=== PATIENT | male | born 1955 | race Caucasian/White ===

== ENCOUNTER 2018-02-25 00:57 | Outpatient (CLI) | payer OTHER, SELFPAY ==
--- NOTE | 2018-02-25 13:00 | ETT_ITS ---
*[facility]* *[facility]* [address] [place] [address] Stress Electrocardiography Jv protocol Date of study: 02/25/2018 *PATIENT PRESENTATION* Height: 175.3cm (69in) Blood Pressure: Weight: 74.5kg (164lb) BSA: 1.91m^2 Ordering physician: Kim Haddad Impressions: - Objectively normal with no ST changes. - However, with reproduction of chest pain at peak exercise with resolution at rest. Summary: 1. Stress: The target heart rate was achieved. Recommendations: Consider perfusion imaging for further prognostication. Indication: R07.89. History: REASON FOR VISIT: EXERTIONAL CHEST PAIN NOTED WHILE WALKING UP HILL IN THE LAST 6 MONTHS. NO RESTING CHEST PAIN. MAIN RISK FACTOR IS HIS ELEVATED HDL. Risk factors: Family history of coronary artery disease. Dyslipidemia. Cholesterol: 269mg/dl. HDL: 59mg/dl. LDL: 184mg/dl. Triglycerides: 101mg/dl. ALLERGIES: NO KNOWN DRUG ALLERGIES. MEDICATIONS: IBUPROFEN PRN. Protocol: Jv protocol. Baseline ECG: SINUS RHYTHM. HR 63 BPM. Stress protocol: + +---+ + !Stage !HR !BP (mmHg) ! + +---+ + !Baseline supine !63 !140/80 (100)! + +---+ + !Baseline standing !75 !124/82 (96) ! + +---+ + !Stage I; 1.7mph, 10degrees; 3 min !103!152/84 (107)! + +---+ + !Stage II; 2.5mph, 12degrees; 3 min !110!166/80 (109)! + +---+ + !Stage III; 3.4mph, 14degrees; 3 min!129!168/84 (112)! + +---+ + !Stage IV; 4.2mph, 16degrees; 3 min !148!172/80 (111)! + +---+ + !Immediate post stress !150!188/74 (112)! + +---+ + !Recovery; 3 min !86 !180/86 (117)! + +---+ + !Recovery; 6 min !83 !142/76 (98) ! + +---+ + * Stress results: Maximal heart rate during stress was 152bpm (96% of maximal predicted heart rate). The maximal predicted heart rate was 158bpm. The target heart rate was achieved. The rate-pressure product for the peak heart rate and blood pressure was 37072dn Hg/min. Stress ECG: TREADMILL PORTION OF STRESS TEST ENDED IN 12 MINUTES AND 1 SECOND BECAUSE OF FATIGUE. NORMAL HEART RATE AND BLOOD PRESSURE RESPONSE TO EXERCISE MAX HR = 152 % OF TARGET HR = 96 RARE PVC. APPROXIMATE METS ACHIEVED = 13.48 3 OUT OF 10 CENTER OF CHEST DISCOMFORT DESCRIBED INDIGESTION SENSATION AT PEAK EXERCISE. SUBSIDED IMMEDIATELY WHEN TREAMILL STOPPED. NO SIGNIFICANT ST SEGMENT CHANGES. U WAVES NOTED MOST PROMINENTLY SEEN DURING 2-4 MINUTE RECOVERY PERIOD. ABOVE AVERAGE FUNCTIONAL CAPACITY FOR EXERCISE. Study data: Ivanna Fishman MD supervised and was readily available during the procedure. This study was interpreted by [facility]. Study status: Routine. Consent: The risks, benefits, and alternatives to the procedure were explained to the patient and informed consent was obtained. Procedure: Initial setup. A baseline ECG was recorded. Surface ECG leads and manual cuff blood pressure measurements were monitored. Heart sounds: Normal. Lung sounds: Normal. Treadmill exercise testing was performed using the Jv protocol. Study completion: The patient tolerated the procedure well and was discharged from the lab. Discharge: The patient left the laboratory in stable condition. Birthdate: Patient birthdate: 1955. Sex: Gender: male. Study date: Study date: 02/25/2018. Study time: 01:00 PM. Signature Documentation: The Stress ECG portion of this study was interpreted by Ivanna Fishman MD. Electronically signed by Ivanna Fishman 02/25/2018 14:42
== END 2018-02-25 01:17 ==
PROVIDERS: PCP Nurse Practitioner Family; Visit Provider Nurse Practitioner Family
DX: R07.89 Other chest pain (principal)
CPT/HCPCS: 93017

== ENCOUNTER 2018-03-08 00:07 | Outpatient (CLI) | payer OTHER, SELFPAY ==
--- NOTE | 2018-03-08 06:39 | MERGEMPI_ITS ---
*[facility]* *[facility]* [address] [place] [address] Myocardial Perfusion Imaging - SPECT Jv protocol Date of study: 03/08/2018 *PATIENT PRESENTATION* Height: 175.3cm (69in) Blood Pressure: Weight: 74.5kg (164lb) BSA: 1.91m^2 Referring physician: Mauricio Sahu MD Ordering physician: Kim Haddad Impressions: - Normal perfusion by Tc99m Sestamibi Imaging. - Abnormal contraction consistent with cardiomyopathy. - Consider ECHO to better evaluate LVEF. Summary: 1. Myocardial perfusion imaging: No myocardial perfusion defects noted. 2. The calculated left ventricular ejection fraction after stress: 40%. Diffuse left ventricular regional motion abnormalities. 3. Stress: The target heart rate was achieved. Indication: R07.9. History: Patient's presenting symptoms: asymptomatic. REASON FOR VISIT: PATIENT REPORTS A DEEP ACHE CHEST PAIN WHILE WALKING UP A STEEP HILL OVER THE LAST SIX MONTHS. NO CHEST PAIN AT REST. PATIENT HAD RETURN OF CHEST PAIN AT PEAK EXERCISE DURING REGULAR TREADMILL STRESS TEST ON 02/25/18. PATIENT PRESENTS TODAY FOR MPI STRESS TEST TO FURTHER INVESTIGATE. PAST MEDICAL HISTORY: HYPERLIPIDEMIA. FAMILY HISTORY: MOTHER - HYPERTENSION, HYPERLIPIDEMIA. FATHER - COPD WITH EMPHYSEMA. SMOKING STATUS: NEVER SMOKER. EXERCISE ROUTINE: WALKING 5-6 DAYS/WEEK, STRETCHING AND PUSH-UPS. Risk factors: Family history of coronary artery disease. Dyslipidemia. Cholesterol: 269mg/dl. HDL: 59mg/dl. LDL: 184mg/dl. Triglycerides: 101mg/dl. ALLERGIES: NO KNOWN DRUG ALLERGIES. MEDICATIONS: IBUPROFEN PRN. Imaging Technique: Protocol: Jv protocol. Acquisition: Gated SPECT; 1 day - rest/stress. The patient was imaged in the supine position. Attenuation correction used. Isotope administration: - Rest. Tc[99m]-sestamibi. Dose: 10.5mCi. Date: 03/08/2018. Injection time: 08:15 AM. Injection to stress time: 00:45. - Stress. Tc[99m]-sestamibi. Dose: 32mCi. Date: 03/08/2018. Injection time: 11:00 AM. 1-2 min before end of exercise Baseline ECG: SINUS BRADYCARDIA. HEART RATE 57 BPM. Stress protocol: + +---+ + + !Stage !HR !BP (mmHg) !Rhythm ! + +---+ + + !Baseline supine !57 !122/76 (91) !Sinus debbie! + +---+ + + !Baseline standing !69 !142/82 (102)! ! + +---+ + + !Stage I; 1.7mph, 10degrees; 3 min !88 !148/80 (103)! ! + +---+ + + !Stage II; 2.5mph, 12degrees; 3 min !102!156/82 (107)! ! + +---+ + + !Stage III; 3.4mph, 14degrees; 3 min!121!162/86 (111)! ! + +---+ + + !Stage IV; 4.2mph, 16degrees; 3 min !145!170/88 (115)! ! + +---+ + + !Peak stress !148! ! ! + +---+ + + !Recovery; 1 min !115!184/80 (115)! ! + +---+ + + !Recovery; 3 min !83 !176/84 (115)! ! + +---+ + + !Recovery; 6 min !83 !126/80 (95) ! ! + +---+ + + * Stress results: Maximal heart rate during stress was 148bpm (94% of maximal predicted heart rate). The maximal predicted heart rate was 158bpm. The target heart rate was achieved. The rate-pressure product for the peak heart rate and blood pressure was 09756hv Hg/min. Stress ECG: TREADMILL PORTION OF MPI STRESS TEST ENDED IN 11 MIN 59 SEC DUE TO DYSPNEA AND ONSET OF CHEST PAIN. APPROPRIATE HEART RATE AND BLOOD PRESSURE RESPONSE TO EXERCISE. MAX HR 148 BPM, 93% OF TARGET HR. APPROXIMATE METS ACHIEVED 13.48. NO ECTOPY NOTED. AFTER 11 MINUTES OF EXERCISE, PATIENT REPORTED 3/10 DULL CHEST PAIN LOCATED AT STERNUM AND RADIATING TO JAW, WITH ASSOCIATED DYSPNEA. CHEST PAIN RESOLVED WITH REST BY MINUTE [address] SEGMENT DEPRESSION NOTED IN LEADS V3, V4, V5, AND V6 STARTING AT MINUTE 9 OF EXERCISE AND RETURNING TO BASELINE BY MINUTE 2 OF RECOVERY. UPRIGHT U WAVES PRESENT ON EKG AT MINUTE 2 OF RECOVERY AND RETURNING TO BASELINE BY MINUTE 6. ABOVE AVERAGE FUNCTIONAL CAPACITY. Myocardial perfusion: Imaging information: gated. No myocardial perfusion defects noted. Ventricular Function (Wall Motion): The calculated left ventricular ejection fraction after stress: 40%. Diffuse left ventricular regional motion abnormalities. Study data: Mauricio Sahu MD supervised and was readily available during the procedure. This study was interpreted by [facility]. Study status: Routine. Consent: The risks, benefits, and alternatives to the procedure were explained to the patient and informed consent was obtained. Procedure: Initial setup. A baseline ECG was recorded. Surface ECG leads and manual cuff blood pressure measurements were monitored. Heart sounds: Normal. Lung sounds: Normal. Treadmill exercise testing was performed using the Jv protocol. Study completion: All catheters inserted during the procedure were removed. The patient tolerated the procedure well and was discharged from the lab. Discharge: The patient left the laboratory in stable condition. Birthdate: Patient birthdate: 1955. Sex: Gender: male. Study date: Study date: 03/08/2018. Study time: 06:39 AM. Electronically signed by Mauricio Sahu MD 03/08/2018 12:57
[2018-03-08 13:49] LABS: Anion Gap 11.6 mmol/L (3-11); BUN 25 mg/dL (7-18); CO2 26.4 mmol/L (21.0-32.0); CREATININE 1.24 mg/dL (0.70-1.30); Calcium 9.2 mg/dL (8.5-10.1); Chloride 103 mmol/L (98-107); Estimated GFR 59.07 (mL/min/1.73m2); Glucose 88 mg/dL (70-100); Potassium 4.3 mmol/L (3.5-5.1); Sodium 141 mmol/L (136-145)
[2018-03-08 14:22] LABS: Cholesterol 243 mg/dL (50-200); HDL Cholesterol 49 mg/dL (40-60); LDL CHOLESTEROL 157 mg/dL (<100); Triglyceride 141 mg/dL (30-150)
== END 2018-03-08 00:27 ==
PROVIDERS: PCP Nurse Practitioner Family; Visit Provider Nurse Practitioner Family
DX: R07.9 Chest pain, unspecified (principal); I42.9 Cardiomyopathy, unspecified; E78.5 Hyperlipidemia, unspecified
CPT/HCPCS: 36415; 78452; 80048; 80061; 83721; 93017

== ENCOUNTER 2018-03-24 00:14 | Outpatient (CLI) | payer OTHER, SELFPAY ==
--- NOTE | 2018-03-24 14:15 | MERGE_ITS ---
*[facility]* *[facility]* [address] [place] [address] Date of study: 03/24/2018 Transthoracic Echocardiography M-mode, complete 2D, complete spectral Doppler, and color Doppler *STUDY CONCLUSIONS* Summary: 1. Left ventricle: The cavity size was normal. Wall thickness was normal. Systolic function was normal. The estimated ejection fraction was 55-60%. Wall motion was normal; there were no regional wall motion abnormalities. 2. Mitral valve: Mild thickening, consistent with myxomatous proliferation. No echocardiographic evidence for prolapse. There was mild to moderate regurgitation. 3. Left atrium: The atrium was mildly dilated. 4. Right ventricle: The cavity size was normal. Wall thickness was normal. Systolic function was normal. *PATIENT PRESENTATION* Height: 177.8cm ((70in) ) S/D Pressure: 144 / 69 Weight: 72.6kg ((159.7lb) ) BSA: 1.89m^2 Test start time: 02:15 PM. Test stop time: 03:15 PM. PERFORMING [facility] VOLUNTEER FIRE FIGHTER RT Hiwot Chaparro)(CT), KLEBER ORDERING Kim Haddad REFERRING Kim Haddad *PROCEDURE DATA* Procedure information: The patient was identified by two identifiers. This study was interpreted by [facility]. Pertinent images and digital data are archived for permanent storage and are available for subsequent review. No prior study was available for comparison. Study status: Routine. Transthoracic echocardiography. M-mode, complete 2D, complete spectral Doppler, and color Doppler. A Transthoracic Echocardiogram was performed. Scanning was performed from the parasternal, apical, subcostal, and suprasternal notch acoustic windows. Images were obtained using an [id number] cardiac ultrasound machine. Image quality was adequate. Study completion: The patient tolerated the procedure well. There were no complications. History: PMH: exertional chest pain. cardiomyopathy seen on MPI *CARDIAC ANATOMY* Left ventricle: The cavity size was normal. Wall thickness was normal. Systolic function was normal. The estimated ejection fraction was 55-60%. Wall motion was normal; there were no regional wall motion abnormalities. Diastolic parameters were not diagnostic. Aortic valve: Trileaflet; normal thickness leaflets. Mobility was not restricted. Doppler: Transvalvular velocity was within the normal range. There was no stenosis. There was no significant regurgitation. VTI ratio of LVOT to aortic valve: 0.69. Valve area (VTI): 2.1cm^2. Indexed valve area (VTI): 1.1cm^2/m^2. Peak velocity ratio of LVOT to aortic valve: 0.77. Valve area (Vmax): 2.3cm^2. Indexed valve area (Vmax): 1.2cm^2/m^2. Mean velocity ratio of LVOT to aortic valve: 0.72. Valve area (Vmean): 2.2cm^2. Indexed valve area (Vmean): 1.1cm^2/m^2. Mean gradient (S): 3.1mm Hg. Peak gradient (S): 4.4mm Hg. Aorta: Aortic root: The aortic root was normal in size. Ascending aorta: The ascending aorta was normal in size. Mitral valve: Mild thickening, consistent with myxomatous proliferation. Mobility was not restricted. No echocardiographic evidence for prolapse. Doppler: Transvalvular velocity was within the normal range. There was no evidence for stenosis. There was mild to moderate regurgitation. Valve area by pressure half-time: 4.5cm^2. Indexed valve area by pressure half-time: 2.4cm^2/m^2. Left atrium: The atrium was mildly dilated. Right ventricle: The cavity size was normal. Wall thickness was normal. Systolic function was normal. Pulmonic valve: Doppler: Transvalvular velocity was within the normal range. There was no evidence for stenosis. There was no significant regurgitation. Peak gradient (S): 4.8mm Hg. Tricuspid valve: Structurally normal valve. Doppler: Transvalvular velocity was within the normal range. There was no evidence for stenosis. There was mild regurgitation. Pulmonary artery: Pulmonary systolic pressure was within the normal range, in the range of 25mm Hg to 30mm Hg. Right atrium: The atrium was normal in size. Pericardium: There was no pericardial effusion. Systemic veins: Inferior vena cava: Well visualized. The vessel was patent and normal in size. The respirophasic diameter changes were in the normal range (greater than or equal to 50%). Baseline ECG: Normal sinus rhythm. Measurements Left ventricle Value Reference LV ID, ED, PLAX 4.9 cm 3.5 - 6.0 LV ID, ES, PLAX 3.6 cm 2.1 - 4.0 LV PW thickness, ED, PLAX 1.1 cm LV end-diastolic volume, 1-p A2C 109 ml LV ejection fraction, 1-p A2C 61 % LV end-diastolic volume, 1-p A4C 123 ml LV ejection fraction, 1-p A4C 52 % LV e', lateral 0.075 m/sec LV E/e', lateral 8 LV e', medial 0.082 m/sec LV E/e', medial 7 LV e', average 0.078 m/sec LV E/e', average 7 Ventricular septum Value Reference IVS thickness, ED, PLAX 1.0 cm LVOT Value Reference LVOT ID, A-P 2.0 cm LVOT area 3 cm^2 LVOT peak velocity, S 0.8 m/sec LVOT mean velocity, S 0.62 m/sec LVOT VTI, S 17.9 cm LVOT peak gradient, S 2.6 mm Hg LVOT mean gradient, S 1.6 mm Hg Stroke volume (SV), LVOT DP 54 ml Stroke index (SV/bsa), LVOT DP 28 ml/m^2 Aortic valve Value Reference Aortic valve peak velocity, S 1 m/sec Aortic valve mean velocity, S 0.86 m/sec Aortic valve VTI, S 26.0 cm Aortic mean gradient, S 3.1 mm Hg Aortic peak gradient, S 4.4 mm Hg VTI ratio, LVOT/AV 0.69 Aortic valve area, VTI 2.1 cm^2 Velocity ratio, peak, LVOT/AV 0.77 Aortic valve area, peak velocity 2.3 cm^2 Velocity ratio, mean, LVOT/AV 0.72 Aortic valve area, mean velocity 2.2 cm^2 Aortic valve area/bsa, mean velocity 1.1 cm^2/m^2 Aorta Value Reference Aortic root ID, ED 3.3 cm Ascending aorta ID, A-P, S 3.5 cm Left atrium Value Reference LA ID, A-P, ES 3.0 cm LA ID/bsa, A-P 1.6 cm/m^2 <=2.2 LA area, ES, A4C 21.3 cm^2 8.8 - 23.4 LA area, ES, A2C 16 cm^2 LA volume/bsa, ES, 1-p A4C 39 ml/m^2 LA volume, ES, 2-p 59 ml LA volume/bsa, ES, 2-p 31 ml/m^2 LA/aortic root ratio 0.91 Mitral valve Value Reference Mitral E-wave peak velocity 0.59 m/sec Mitral A-wave peak velocity 0.49 m/sec Mitral deceleration time 170 ms 150 - 230 Mitral pressure half-time 49 ms Mitral E/A ratio, peak 1.2 Mitral valve area, PHT, DP 4.5 cm^2 Pulmonary veins Value Reference Pulmonary vein peak velocity, S 0.47 m/sec Pulmonary vein peak velocity, D 0.48 m/sec Pulmonary vein velocity ratio, peak, 0.98 S/D Tricuspid valve Value Reference Tricuspid regurg peak velocity 2.4 m/sec Tricuspid peak RV-RA gradient 23.3 mm Hg Right atrium Value Reference RA area, ES, A4C 16.4 cm^2 8.3 - 19.5 Pulmonic valve Value Reference Pulmonic peak gradient, S 4.8 mm Hg Legend: (L) and (H) ori values outside specified reference range. I have personally reviewed the images and have reviewed and edited the reported findings. Electronically signed by Kieran Goldberg 03/25/2018 07:45
== END 2018-03-24 00:34 ==
PROVIDERS: PCP Nurse Practitioner Family; Visit Provider Nurse Practitioner Family
DX: R07.9 Chest pain, unspecified (principal); I42.9 Cardiomyopathy, unspecified; I34.0 Nonrheumatic mitral (valve) insufficiency
CPT/HCPCS: 93306

== ENCOUNTER 2019-02-11 01:46 | Outpatient (CLI) | payer OTHER, SELFPAY ==
[2019-02-11 08:53] LABS: Hemoglobin A1C 5.9 % (4.5-6.2)
[2019-02-11 10:11] LABS: ALT 32 U/L (16-63); AST 21 U/L (15-37); Albumin 4.1 g/dL (3.4-5.0); Alkaline Phosphatase 48 U/L (46-116); Anion Gap 4.4 mmol/L (3-11); BUN 25 mg/dL (7-18); Bilirubin, Total 0.3 mg/dL (0.2-1.0); CO2 30.6 mmol/L (21.0-32.0); Calcium 8.9 mg/dL (8.5-10.1); Calculated LDL 170 mg/dL; Chloride 105 mmol/L (98-107); Cholesterol 236 mg/dL (50-200); Glucose 99 mg/dL (70-100); HDL Cholesterol 55 mg/dL (40-60); Potassium 4.8 mmol/L (3.5-5.1); Sodium 140 mmol/L (136-145); Total Protein 7.2 g/dL (6.4-8.2); Triglyceride 58 mg/dL (30-150)
== END 2019-02-11 02:06 ==
PROVIDERS: PCP Nurse Practitioner Family; Visit Provider Nurse Practitioner Family
DX: E78.5 Hyperlipidemia, unspecified (principal)
CPT/HCPCS: 36415; 80053; 80061; 83036

== ENCOUNTER 2019-03-04 19:29 | Emergency (ER) | payer OTHER, SELFPAY ==
[2019-03-04 19:37] VITALS: BP 131/66; PULSE 68; RESP 18; TEMP 37.1; O2SAT 100
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
[2019-03-04 20:20] LABS: Abs Immature Grans 0.01 k/cumm (0.0-0.09); Absolute Basophil Count 0.03 k/cumm (0.0-0.2); Absolute Eosinophil Count 0.14 k/cumm (0.0-0.7); Absolute Lymphocyte Count 1.68 k/cumm (1.2-3.4); Absolute Monocyte Count 0.38 k/cumm (0.11-0.7); Absolute Neutrophil Count 3.12 k/cumm (1.2-6.7); Basophils % 0.6; Eosinophils % 2.6; HGB 13.9 g/dL (13.5-17.5); Immature Grans % 0.2; Lymphocytes % 31.3; Mean Corp. HGB Concentration 33.1 g/dL (32.0-36.0); Mean Corpuscular Hemoglobin 29.3 pg (27.0-33.0); Mean Corpuscular Volume 88.4 fL (80-95); Mean Platelet Volume 10.1 fL (8.0-11.0); Monocytes % 7.1; Neutrophils % 58.2; Platelet Count 293 x1000/uL (130-400); RBC 4.75 m/cumm (4.50-6.00); RBC Distribution Width 13.3 % (11.8-14.1); White Blood Cell Count 5.36 k/cumm (4.4-10.8)
[2019-03-04 20:23] LABS: Bilirubin Negative (Negative); Blood Negative (Negative); Clarity Sl Cloudy (Clear); Glucose Negative (Negative); Ketones Negative (Negative); Leukocyte Esterase Small (Negative); Nitrite Negative (Negative); Specific Gravity 1.025 (1.005-1.025); Urobilinogen 0.2 EU/dL (Up TO 0.2)
[2019-03-04 20:39] LABS: Epithelial Cells Few HPF (Negative); Other Cells Rare Renal (Negative); RBC 0-2 HPF (0-2)
[2019-03-04 20:40] LABS: Bacteria Packed HPF (Negative); C & S Indicated? Yes; Crystals Negative HPF (Negative); Mucus Negative (Negative)
[2019-03-04 20:44] LABS: Lipase 93 U/L (73-393)
[2019-03-04 20:47] LABS: ALT 41 U/L (16-63); AST 22 U/L (15-37); Albumin 3.9 g/dL (3.4-5.0); Alkaline Phosphatase 48 U/L (46-116); Anion Gap 5.3 mmol/L (3-11); BUN 27 mg/dL (7-18); Bilirubin, Total 0.3 mg/dL (0.2-1.0); CO2 31.7 mmol/L (21.0-32.0); CREATININE 1.16 mg/dL (0.70-1.30); Calcium 8.8 mg/dL (8.5-10.1); Chloride 106 mmol/L (98-107); Glucose 158 mg/dL (74-106); Magnesium 2.4 mg/dL (1.8-2.4); Potassium 4.1 mmol/L (3.5-5.1); Sodium 143 mmol/L (136-145); Total Protein 7.6 g/dL (6.4-8.2)
[2019-03-04] MEDS: Omnipaque 350 MG/ML 100 ML BTL IJ (21:31)
--- NOTE | 2019-03-04 21:31 | DI.CT_ITS ---
EXAM: CT ABDOMEN PELVIS CTA CLINICAL HISTORY: abdominal pain, ttp mid abd TECHNIQUE: Post IV contrast during the arterial phase. Axial CT angiography was performed with multi-slice acquisition and multi-planar and/or 3D reconstruc tions. COMPARISON: No exams were available for comparison FINDINGS: There is no evidence of aortic aneurysm or dissection. The celiac artery is dilated distally at 1.1 c m. The SMA and renal arteries as well as iliac arteries are unremarkable. The lung bases are clear. L iver, gallbladder, spleen and adrenals are unremarkable. The pancreas is mildly atrophic. There are l arge bilateral parapelvic renal cysts. Food is noted in the stomach. Pancreas appears atrophic mildly atrophic. There is a moderate quantity of stool in the colon. The appendix appears normal. There is diverticulosis without evidence of diverticulitis. There is a diverticulum of the right side of the b ladder. The prostate is unremarkable. There is a small amount of fat at the umbilicus. Degenerative d isc changes are seen at L5-S1. IMPRESSION: Dilatation of the mid to distal celiac artery. No acute abnormality.
--- NOTE | 2019-03-04 22:03 | DI.VRAD_ITS ---
PROCEDURE INFORMATION: Exam: CT Angiography Abdomen and Pelvis With Contrast Exam date and time: 03/04/2019 9:26 PM Age: 63 years old Clinical history: Abdominal pain; Localized; Other: Ttp mid abd TECHNIQUE: Imaging protocol: Computed tomographic angiography of the abdomen and pelvis with intravenous contrast material. 3D rendering: MIP reconstructed images were created and reviewed. Radiation optimization: All CT scans at this facility use at least one of these dose optimization techniques: automated exposure control; mA and/or kV adjustment per patient size (includes targeted exams where dose is matched to clinical indication); or iterative reconstruction. Contrast material: [id number]; Contrast volume: 100 ml; Contrast route: IV RT AC 18G; COMPARISON: No relevant prior studies available. FINDINGS: Aorta: No aortic aneurysm. Minimal atherosclerosis in the infrarenal abdominal aorta. Celiac trunk and mesenteric arteries: Mild aneurysmal dilation of the celiac artery up to 1.1 cm. Renal arteries: No occlusion or significant stenosis. Right iliac arteries: No occlusion or significant stenosis. Left iliac arteries: No occlusion or significant stenosis. Liver: No mass. Gallbladder and bile ducts: Unremarkable. No calcified stones. No ductal dilation. Pancreas: Unremarkable. No mass. No ductal dilation. Spleen: Unremarkable. No splenomegaly. Adrenals: Unremarkable. No mass. Kidneys and ureters: Bilateral parapelvic renal cysts measuring up to 5.6 cm. Stomach and bowel: Distal colonic diverticulosis without diverticulitis. Mild small bowel ileus. Appendix: No evidence of appendicitis. Intraperitoneal space: Unremarkable. No free air. No significant fluid collection. Lymph nodes: Unremarkable. No enlarged lymph nodes. Bladder: Right bladder diverticulum. Reproductive: Unremarkable as visualized. Bones/joints: Degenerative disc disease at L5-S1. Soft tissues: Umbilical hernia containing fat, uncomplicated. IMPRESSION: No aortic aneurysm or dissection. Minimal atherosclerosis in the infrarenal abdominal aorta. Mild aneurysmal dilation of the celiac artery up to 1.1 cm. Mild small bowel ileus Dictated and Authenticated by: Subhash James MD. Ordering:ROCIO Eagle MD
[2019-03-05 01:57] VITALS: BP 131/66; PULSE 68; RESP 18; O2SAT 100
--- NOTE | 2019-03-08 08:13 | W.ED.FU ---
Follow Up Plan: called and left message to check on patient after note of enterococcus in followup urine culture.
--- NOTE | 2019-03-08 08:26 | NUR.NOTE ---
Nursing Note:Faxed urine culture report to PCP for follow up per Dr. Michelle. Shivani Reid.
== END 2019-03-04 23:05 | disposition home or self-care (01) ==
PROVIDERS: Student in an Organized Health Care Education/Training Program; Emergency Provider Student in an Organized Health Care Education/Training Program; PCP Nurse Practitioner Family
DX: R10.33 Periumbilical pain (principal); K56.7 Ileus, unspecified; I72.8 Aneurysm of other specified arteries; Z87.442 Personal history of urinary calculi
CPT/HCPCS: 36415; 80053; 83690; 86850; 86900; 86901; 87077; 99285; 74174; 81003; 81015; 83735; 85025; 87086; 87186; 99284; J3490

== ENCOUNTER 2019-03-18 04:50 | Outpatient (CLI) | payer OTHER, SELFPAY ==
[2019-03-18 08:58] LABS: Bilirubin Negative (Negative); Blood Negative (Negative); Clarity Clear (Clear); Glucose Negative (Negative); Ketones Negative (Negative); Leukocyte Esterase Small (Negative); Nitrite Negative (Negative); Specific Gravity 1.015 (1.005-1.025); Urobilinogen 0.2 EU/dL (Up TO 0.2); pH 5.5 (5-8)
[2019-03-18 09:29] LABS: Bacteria Many HPF (Negative); C & S Indicated? Yes; Epithelial Cells Few HPF (Negative)
== END 2019-03-18 05:10 ==
LOC: LBO 04:52 → LBN 08:08
PROVIDERS: PCP Nurse Practitioner Family; Visit Provider Nurse Practitioner Family
DX: R82.79 Other abnormal findings on microbiological examination of urine (principal)
CPT/HCPCS: 87077; 81003; 81015; 87086; 87186

== ENCOUNTER 2019-05-20 00:54 | Outpatient (CLI) | payer OTHER, SELFPAY ==
[2019-05-20 07:22] LABS: Absolute Basophil Count 0.02 k/cumm (0.0-0.2); Absolute Eosinophil Count 0.11 k/cumm (0.0-0.7); Absolute Lymphocyte Count 1.21 k/cumm (1.2-3.4); Absolute Monocyte Count 0.33 k/cumm (0.11-0.7); Absolute Neutrophil Count 1.94 k/cumm (1.2-6.7); Basophils % 0.6; HCT 45.8 % (40.0-50.0); HGB 15.1 g/dL (13.5-17.5); Lymphocytes % 33.5; Mean Corpuscular Hemoglobin 29.2 pg (27.0-33.0); Mean Corpuscular Volume 88.6 fL (80-95); Mean Platelet Volume 10.2 fL (8.0-11.0); Monocytes % 9.1; Neutrophils % 53.8; Platelet Count 306 x1000/uL (130-400); RBC 5.17 m/cumm (4.50-6.00); RBC Distribution Width 13.3 % (11.8-14.1); White Blood Cell Count 3.61 k/cumm (4.4-10.8)
[2019-05-20 08:30] LABS: Hemoglobin A1C 5.7 % (3.8-5.6)
[2019-05-20 08:36] LABS: Calculated LDL 154 mg/dL (<100); Cholesterol 229 mg/dL (<200); HDL Cholesterol 62 mg/dL (40-60); Triglyceride 67 mg/dL (<150)
[2019-05-20 08:46] LABS: ALT 37 U/L (16-63); AST 23 U/L (15-37); Albumin 4.6 g/dL (3.4-5.0); Alkaline Phosphatase 59 U/L (46-116); Anion Gap 9.6 mmol/L (3-11); BUN 30 mg/dL (7-18); Bilirubin, Total 0.5 mg/dL (0.2-1.0); CO2 29.4 mmol/L (21.0-32.0); CREATININE 1.12 mg/dL (0.70-1.30); Calcium 9.4 mg/dL (8.5-10.1); Chloride 103 mmol/L (98-107); Glucose 89 mg/dL (74-106); Potassium 4.8 mmol/L (3.5-5.1); Sodium 142 mmol/L (136-145); Total Protein 7.9 g/dL (6.4-8.2)
== END 2019-05-20 01:14 ==
PROVIDERS: PCP Nurse Practitioner Family; Visit Provider Nurse Practitioner Family
DX: R73.03 Prediabetes (principal); I77.4 Celiac artery compression syndrome
CPT/HCPCS: 36415; 80053; 80061; 83036; 85025

== ENCOUNTER 2020-02-17 01:32 | Outpatient (CLI) | payer OTHER, SELFPAY ==
[2020-02-17 13:10] LABS: Hemoglobin A1C 5.5 % (<5.7)
[2020-02-17 13:30] LABS: Calculated LDL 154 mg/dL (<100); Cholesterol 230 mg/dL (<200); HDL Cholesterol 59 mg/dL (40-60); Triglyceride 87 mg/dL (<150)
== END 2020-02-17 01:52 ==
PROVIDERS: PCP Nurse Practitioner Family; Visit Provider Nurse Practitioner Family
DX: R73.03 Prediabetes (principal); E78.5 Hyperlipidemia, unspecified
CPT/HCPCS: 36415; 80061; 83036

== ENCOUNTER 2020-03-21 00:30 | Outpatient (CLI) | payer OTHER, SELFPAY ==
--- NOTE | 2020-03-21 07:31 | DI.US_ITS ---
APPROVED REPORT EXAM: Comprehensive 2D, Doppler, and color-flow Echocardiogram Patient Location: Out-Patient [employer] Installer: Bernadine Forman RDCS (AE) Indications: Mitral valve regurgitation Other Information Study Quality: Good Conclusion Left Ventricle : The left ventricle is normal size. The left ventricular systolic function is normal. The left ventricular ejection fraction is within the normal range. There is normal left ventricular wall thickness. There is normal LV segmental wall motion. The left ventricular diastolic function is normal. LVEF is 60%. Right Ventricle : The right ventricle is normal size. The right ventricular systolic function is norm al. The RVSP is 19.9 mmHg. Atria : The left atrium size is normal. The right atrium size is normal. Mitral Valve : The mitral valve is normal in structure. No evidence of mitral valve stenosis. Mild mi tral regurgitation. There is bowing of the anterior mitral valve without prolapse. Great Vessels : The aortic root is normal in size. The ascending aorta is mildly dilated. Aortic arch is normal in caliber. IVC is normal in size and collapses >50% with inspiration. Compared to study from 03/24/2018, there is no significant change. Wall motion Left Ventricle The left ventricle is normal size. The left ventricular systolic function is normal. The left ventric ular ejection fraction is within the normal range. There is normal left ventricular wall thickness. T here is normal LV segmental wall motion. The left ventricular diastolic function is normal. There is no ventricular septal defect visualized. LVEF is 60%. Right Ventricle The right ventricle is normal size. The right ventricular systolic function is normal. The RVSP is 19 .9 mmHg. Atria The left atrium size is normal. The right atrium size is normal. The interatrial septum is intact wit h no evidence for an atrial septal defect. Aortic Valve The aortic valve is normal in structure. Aortic valve is trileaflet. There is no aortic valvular sten osis. Trace aortic regurgitation. Mitral Valve The mitral valve is normal in structure. No evidence of mitral valve stenosis. Mild mitral regurgitat ion. There is bowing of the anterior mitral valve without prolapse. Tricuspid Valve The tricuspid valve is normal in structure. There is no tricuspid valve stenosis. Mild tricuspid regu rgitation. Pulmonic Valve The pulmonary valve is normal in structure. There is no pulmonic valvular stenosis. Trace pulmonic re gurgitation. Great Vessels The aortic root is normal in size. The ascending aorta is mildly dilated. Aortic arch is normal in ca liber. IVC is normal in size and collapses >50% with inspiration. Pericardium There is no pericardial effusion. 2D Dimensions IVSD d PLAX 0.87 cm M: 0.6-1.2 LV Vol A2C d MOD 100.4 mL LVPW d PLAX 0.86 cm M: 0.6 - 1.2 LV Vol A4C d MOD 124.3 mL LVID d PLAX 4.80 cm M: 4.2 - 5.8 LA vol/ BSA A2C s A-L 29.3 mL/m2 LVDs 3.30 cm M: 2.5 - 4.0 LA vol/ BSA A4C s A-L 20.7 mL/m2 Ao Root d 3.12 cm M: 3.1 - 3.7 LA Vol/ BSA Biplane s A-L 27.2 mL/m2 RA Area A4C 17.10 cm2 LA Area A4C s MOD 13.97 cm2 RA Vol/ BSA A4C s A-L 26.1 mL/m2 LA Area A2C s MOD 18.37 cm2 Ao Asc Diam d 3.65 cm M: 2.6 - 3.4 LV EF A4C MOD 56.3 % LV EF Teichholz 58.2 % LV EF A2C MOD 59.5 % LVEF (Brewer's) 58.79 % M: 52 - 72 LV EF Biplane MOD 58.8 % LV Volume 89.42 mL M: 62 - 150 SV 68.42 mL LV Volume Index 48.07 mL/m2 M: 34 - 74 SV Index 36.73 mL/m2 LV Vol Biplane MOD 116.4 mL FS 30.65 % M-Mode TAPSE 2.35 cm (M/F) >1.7 LV Diastology MV E' medial 0.070 (>0.07 m/s) E/A Ratio 1.0 LV E/e MED 7.15 (<14) MV E Vmax 0.51 (0.4-1.3 m/s) MV E' lateral 0.085 (>0.1 m/s) MV A Vmax 0.50 (0.4-1.3 m/s) LV E/e LAT 5.90 (<14) MV E/A Ratio 0.94 MV E/E' medial 7.18 MV E/E' lateral 5.94 Aortic Valve LVOT Area 3.04 cm2 AoV Area Vmax 2.59 cm2 LVOT Vmax 0.90 m/s AoV Area/ BSA (Vmax) 1.39 cm2/m2 LVOT Mean Aneesh. 0.59 m/s KIRT Mean Aneesh. 2.44 cm2 LVOT Peak Grad 3.3 mmHg KIRT Mean Aneesh. Index 1.31 cm2/m2 LVOT Mean Grad 1.6 mmHg LVOT VTI 0.193 m LVOT Diam s 1.95 cm AoV Vmax 1.06 m/s Velocity Ratio 0.84 AoV Mean Aneesh. 0.73 m/s AoV Peak Grad 4.5 mmHg LVOT SV 58.59 mL AoV Mean Grad 2.4 mmHg AoV VTI 0.207 m AoV Area VTI 2.83 cm2 AoV Area/ BSA (VTI) 1.52 cm/m2 Mitral Valve MV DT 155 (160-240 msec) MR Vmax 5.44 m/s MV PHT 45 msec MR VTI 1.690 m MV Area PHT 4.90 cm2 MR Peak Grad 118.5 mmHg MV VTI 0.157 m MR Mean Grad 90.9 mmHg MV VTI Annulus 0.147 m MR PISA Radius 0.38 cm MV Area VTI 3.49 (4.0-6.0 cm2) MR EROA 0.06 cm2 MR Aliasing Velocity 0.35 m/s MR PISA 0.90 cm2 Pulmonary Valve PV Vmax 0.96 (0.5-1.5 m/s) RVOT Peak Gr. 1.28 mmHg PV Peak Grad 3.7 mmHg RVOT Mean Gr. 0.70 mmHg PV Mean Grad 1.9 mmHg RVOT VTI 0.135 m PV VTI 0.198 m RVOT Vmax 0.57 m/s Tricuspid Valve TR Peak Grad 16.8 mmHg TR Vmax 2.05 m/s RA Pressure 3.00 mmHg RVSP (TR) 19.9 mmHg
== END 2020-03-21 00:50 ==
PROVIDERS: PCP Nurse Practitioner Family; Visit Provider Nurse Practitioner Family
DX: I34.0 Nonrheumatic mitral (valve) insufficiency (principal)
CPT/HCPCS: 93306

== ENCOUNTER 2020-11-15 01:44 | Outpatient (CLI) | payer OTHER, SELFPAY ==
[2020-11-15 13:20] LABS: Anion Gap 5.7 mmol/L (3-11); BUN 27 mg/dL (7-18); CO2 29.3 mmol/L (21.0-32.0); Calcium 8.7 mg/dL (8.5-10.1); Chloride 106 mmol/L (98-107); Glucose 102 mg/dL (74-106); Sodium 141 mmol/L (136-145)
--- NOTE | 2020-11-15 14:29 | DI.CT_ITS ---
Exam(s) CT ABDOMEN PELVIS CTA EXAM: CT ABDOMEN PELVIS CTA CLINICAL HISTORY: ? CELICA STENOSIS,H/O MALS,S/P RELEASE,RECURRENT SYMPTOMS. TECHNIQUE: Imaging Protocol: Axial computed tomography images with coronal and sagittal reformatted images were created and reviewed CONTRAST MATERIAL: Intravenous: Omnipaque 350 Contrast volume:100 ml Oral: None COMPARISON: CT CT ABDOMEN PELVIS CTA from 03/04/2019 FINDINGS: CHEST: LUNGS: Visualized lung bases are clear. CARDIAC: Heart size is normal. There is no pericardial effusion. AORTA: No evidence of abdominal aortic aneurysm. The appearance of the celiac artery is unchanged. 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 This aneurysmal d ilatation just proximal to the bifurcation celiac and is located 2.3 cm distal to the origin of the c eliac off of the aorta. There is no intraluminal thrombus within this aneurysmal dilatation. The co mmon hepatic artery and splenic arteries are patent.These superior mesenteric artery appears unremark able and the inferior mesenteric artery is also patent. There is no evidence of significant atherosc lerotic disease in the renal arteries. In the distal abdominal aorta below the takeoff point of the SHERIN there is mild atherosclerotic involvement. Diameter of the abdominal aorta at this level is 1.6 cm. Diameter of the patent common iliac arteries remains 1.2 cm bilaterally. Diameter is in the ext ernal iliac arteries normal as are the common femoral arteries and internal iliac arteries. Visualiz ed proximal SFA arteries are patent. ABDOMEN: There is no evidence of abdominal aortic aneurysm nor dissection.There is no aneurysmal dilatation of the common iliac arteries.The celiac and superior mesenteric arteries are patent. There is no ascites. LIVER: There are no focal hepatic lesions nor dilatation of intrahepatic ducts. GALLBLADDER/BILIARY: No obvious gallbladder pathology. CBD is not dilated. PANCREAS: No evidence of pancreatic mass nor dilatation of the pancreatic duct. SPLEEN: Spleen is not enlarged. There are no intrasplenic lesions. Splenic and portal veins are boone nt. ADRENALS: There are no significant adrenal masses. KIDNEYS: Prominent parapelvic cysts are seen in both kidneys no calculi nor hydronephrosis. No solid renal masses. ABDOMINAL AORTA: As above LYMPH NODES: There is no retroperitoneal nor para-aortic adenopathy. No obvious mesenteric masses. ABDOMINAL WALL: No evidence of significant anterior abdominal wall hernia. GI: There is no evidence of bowel obstruction, free air, nor abscess. PELVIS: LYMPH NODES: There is no intrapelvic nor inguinal adenopathy. GI: No evidence of appendicitis.No evidence of sigmoid diverticulitis. URINARY BLADDER: Urinary bladder is mildly distended. There is a Hutch diverticulum on the right flor e of the urinary bladder which measures 3.7 cm AP by 1.7 cm wide. This does not contain calculi nor obvious mass at this location or elsewhere in the urinary bladder. REPRODUCTIVE: Prostate size is upper normal. Seminal vesicles unremarkable. No free fluid in the pe lvis. OSSEOUS: No significant osseous lesions. Advanced disc space narrowing noted at L5-S1 level. IMPRESSION: 1. 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 No other aneurysms evident although there is moderate atherosclerotic involvement of the distal most ab dominal aorta just above the bifurcation. 2. 3. 4. RADIATION DOSE DELIVERED: 569.74mGy.cm Total DLP DATA REPOSITORY: All CT scans at this facility are submitted to the National Radiology Data Registry (NRDR) Dose Index Registry (DIR) with the [employer] (A[employer]). RADIATION OPTIMIZATION: All CT scans at this facility use at least one of these dose optimization te chniques: automated exposure control; mA and/or kV adjustment per patient size (includes targeted exa ms where dose is matched to clinical indication); or iterative reconstruction.
[2020-11-15] MEDS: Omnipaque 350 MG/ML 100 ML BTL IJ (14:30)
[2020-11-15] MEDS: Normal Saline - Diluent 50 ML VIAL IV (14:30)
== END 2020-11-15 02:04 ==
PROVIDERS: PCP Nurse Practitioner Family; Visit Provider Thoracic Surgery (Cardiothoracic Vascular Surgery)
DX: I77.4 Celiac artery compression syndrome (principal)
CPT/HCPCS: 80048; 74174; J3490

== ENCOUNTER 2021-02-01 03:46 | Outpatient (CLI) | payer OTHER, SELFPAY ==
[2021-02-01 08:42] LABS: Hemoglobin A1C 5.7 % (<5.7)
[2021-02-01 09:25] LABS: BUN 29 mg/dL (7-18); CREATININE 1.1 mg/dL (0.70-1.30); Calcium 8.7 mg/dL (8.5-10.1); Calculated LDL 160 mg/dL (<100); Chloride 104 mmol/L (98-107); Cholesterol 233 mg/dL (<200); Glucose 94 mg/dL (74-106); HDL Cholesterol 64 mg/dL (40-60); Sodium 143 mmol/L (136-145); Triglyceride 48 mg/dL (<150)
[2021-02-01 17:46] LABS: PSA, Screening 0.7 ng/mL (0.0-4.5)
== END 2021-02-01 03:47 | disposition home or self-care (01) ==
LOC: LBO 03:46
PROVIDERS: PCP Nurse Practitioner Family; Visit Provider Nurse Practitioner Family
DX: Z12.5 Encounter for screening for malignant neoplasm of prostate (principal); E78.5 Hyperlipidemia, unspecified
CPT/HCPCS: 36415; 80048; 80061; 84153; 83036

== ENCOUNTER 2022-02-09 09:57 | Emergency (ER) | payer OTHER, SELFPAY ==
[2022-02-09] VITALS (34 sets, daily range): BP systolic 105–148; BP diastolic 59–74; PULSE 50–65; RESP 12–20; TEMP 36.8–36.9; O2SAT 96–100
--- NOTE | 2022-02-09 10:00 | RT.EKG_ITS ---
APPROVED REPORT Exam: Resting ECG Reason for Exam: new onset confusion Patient Location: E HR:61 bpm ECG Measurements Heart Rate 61 AXIS NE 165 P 32 QRSd 105 QRS 37 QT 433 T 64 QTc 437 Conclusion Sinus rhythm...normal P axis, V-rate 60- 99
--- NOTE | 2022-02-09 10:15 | DI.CT_ITS ---
Exam(s) CT BRAIN NECK CTA EXAM: CT BRAIN NECK CTA CLINICAL HISTORY: Altered mental status/confusion. TECHNIQUE: Imaging Protocol: Axial CT angiography was performed with multi-slice acquisition and mu lti-planar and/or 3D reconstructions. CONTRAST MATERIAL: Intravenous: Omnipaque 350 Contrast volume:structured data in ml COMPARISON: CT CT ABDOMEN PELVIS CTA from 11/15/2020 FINDINGS: CTA Neck W: Aortic arch anatomy: The aortic arch anatomy is bovine configuration. There is no significant stenos is at the origin of the great vessels off of the aortic arch. No intimal flap evident. Anterior circulation: Both common carotid arteries ascend with normal luminal diameters. At the level the carotid bulbs and proximal internal carotid arteries there is no significant plaque nor stenosis evident. Both internal carotid arteries are also demonstrated to be nicely patent in th e upper neck and skull base-carotid canals. Posterior circulation: Vertebral arteries originated conventional fashion off of the subclavian arteries and there is no obv ious stenosis at the origin of the vertebral arteries. Both vertebral arteries are patent in the foramen transverse area. The left vertebral artery is iván nant. Both vertebral arteries contribute to the formation of the basilar artery at the skull base. CTA Brain W: Anterior circulation: Both internal carotid arteries are patent in the skull base-carotid canals as well as within the cave rnous sinuses. The supraclinoid aspects of the ICAs are patent. Both A1 segments are patent as are the anterior cer ebral arteries and there is no evidence of aneurysm at the level of the anterior communicating artery . Both middle cerebral arteries are patent with no evidence of significant stenosis nor intraluminal th rombus. There also no aneurysms of these vessels. Posterior circulation: The basilar artery ascends in the midline. Distally it gives off patent bilateral superior cerebella r arteries. Above this level the basilar artery terminates as posterior cerebral arteries. There is narrowing of the proximal 1 cm of the left posterior cerebral artery which is probably developmental, given that there is a posterior communicating artery on the left side of the [id number] feeding the left p osterior cerebral artery. The right posterior cerebral artery exhibits some multilevel beading which is possibly significant. Similar finding not seen in the left posterior cerebral artery. There is no evidence of aneurysm at the tip of the basilar artery nor elsewhere in the [id number] is. CT BRAIN: There is no evidence of intracranial hemorrhage, mass effect, or shift of midline structures. There are no extra-axial fluid collections. Ventricles are not enlarged or shifted. There are no ring enh ancing lesions in the brain and no abnormal meningeal enhancement. IMPRESSION: 1. Patent carotid arteries in the neck. No hemodynamically significant stenosis. 2. Patent vertebral arteries. Left vertebral artery is dominant. 3. Patent intracranial arteries. However, there is an element of beading of the right posterior cere bral artery which may be significant. RADIATION DOSE DELIVERED: 2,272.3mGy.cm Total DLP DATA REPOSITORY: All CT scans at this facility are submitted to the National Radiology Data Registry (NRDR) Dose Index Registry (DIR) with the [employer] (ACR). RADIATION OPTIMIZATION: All CT scans at this facility use at least one of these dose optimization te chniques: automated exposure control; mA and/or kV adjustment per patient size (includes targeted exa ms where dose is matched to clinical indication); or iterative reconstruction.
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
[2022-02-09 10:51] LABS: Abs Immature Grans 0.02 10^3/uL (0.0-0.06); Absolute Basophil Count 0.03 10^3/uL (0.0-0.2); Absolute Eosinophil Count 0.08 10^3/uL (0.0-0.7); Absolute Lymphocyte Count 1.24 10^3/uL (1.2-3.4); Absolute Monocyte Count 0.43 10^3/uL (0.1-0.8); Absolute Neutrophil Count 3.05 10^3/uL (1.2-6.7); Basophils % 0.6; Eosinophils % 1.6; HCT 41.5 % (40.0-50.0); HGB 13.5 g/dL (13.5-17.5); Immature Grans % 0.4; Lymphocytes % 25.6; MCH 29.1 pg (27.0-33.0); MCHC 32.5 % (32.0-36.0); MCV 89 fL (80-95); MPV 9.5 fL (8.0-11.0); Monocytes % 8.9; Neutrophils % 62.9; Platelet Count 290 10^3/uL (130-400); RBC 4.64 10^6/uL (4.36-5.78); RDW 12.4 % (11.8-14.1); RDW-SD 40.8 fL; WBC 4.85 10^3/uL (4.4-10.8)
[2022-02-09 11:04] LABS: Bilirubin Negative (Negative); Blood Negative (Negative); Clarity Sl Cloudy (Clear); Glucose Negative (Negative); Ketones Negative (Negative); Leukocyte Esterase Trace (Negative); Nitrite Negative (Negative); Urobilinogen 0.2 EU/dL (Up TO 0.2)
[2022-02-09 11:05] LABS: Ammonia < 10 umol/L (11-32)
[2022-02-09 11:13] LABS: ALT 42 U/L (16-63); AST 27 U/L (15-37); Albumin 3.7 g/dL (3.4-5.0); Alkaline Phosphatase 52 U/L (46-116); Anion Gap 4.2 mmol/L (3-11); BUN 21 mg/dL (7-18); Bilirubin, Total 0.4 mg/dL (0.2-1.0); CO2 29.8 mmol/L (21.0-32.0); Calcium 8.7 mg/dL (8.5-10.1); Chloride 106 mmol/L (98-107); Estimated GFR 83.01 (mL/min/1.73m2); Glucose 86 mg/dL (74-106); Magnesium 2.3 mg/dL (1.8-2.4); Sodium 140 mmol/L (136-145); Total Protein 7.3 g/dL (6.4-8.2)
[2022-02-09 11:17] LABS: ETHANOL BLOOD < 3.0 mg/dL (<10)
[2022-02-09 11:24] LABS: *AMPHETAMINES SCREEN URINE Negative (Negative); *BARBITURATES SCREEN URINE Negative (Negative); *BENZODIAZEPINES SCREEN URINE Negative (Negative); Cannabinoids THC Negative (Negative); Cocaine Screen,Urine Negative (Negative); METHADONE URINE SCREEN Negative (Negative); OPIATES URINE SCREEN Negative (Negative)
[2022-02-09 11:26] LABS: Tricyclic Antidepressants Negative (Negative)
[2022-02-09 11:32] LABS: Bacteria Moderate HPF (Negative); C & S Indicated? Yes; Casts Negative LPF (Negative); Crystals Negative HPF (Negative); Epithelial Cells Rare HPF (Negative); Mucus Negative (Negative); RBC 0-2 HPF (0-2)
[2022-02-09] MEDS: Normal Saline - Diluent 50 ML VIAL IV (12:00)
[2022-02-09] MEDS: Omnipaque 350 MG/ML 100 ML BTL IJ (12:02)
--- NOTE | 2022-02-09 12:22 | DI.VRAD_ITS ---
PROCEDURE INFORMATION: Exam: CTA Head With Contrast, Arteriography Exam date and time: 02/09/2022 11:53 AM Age: 66 years old Clinical indication: Other: Altered mental status/confusion TECHNIQUE: Imaging protocol: Computed tomographic angiography of the head with contrast. Exam focused on the arteries. 3D rendering (Not supervised by radiologist): MIP and/or 3D reconstructed images were created by the technologist. Radiation optimization: All CT scans at this facility use at least one of these dose optimization techniques: automated exposure control; mA and/or kV adjustment per patient size (includes targeted exams where dose is matched to clinical indication); or iterative reconstruction. Contrast material: OMNIPAQUE 350; Contrast volume: 85 ml; Contrast route: INTRAVENOUS (IV); COMPARISON: No relevant prior studies available. FINDINGS: ANTERIOR CIRCULATION: Right internal carotid artery: Intracranial segment is patent with no significant stenosis. No aneurysm. Ophthalmic artery identified Right middle cerebral artery: No occlusion or significant stenosis. No aneurysm. Right anterior cerebral artery: No occlusion or significant stenosis. No aneurysm. Right A1 segment mildly dominant. Anterior communicating artery identified. The Left internal carotid artery: Intracranial segment is patent with no significant stenosis. No aneurysm. Ophthalmic artery identified. Prominent left PCOM Left middle cerebral artery: No occlusion or significant stenosis. No aneurysm. Left anterior cerebral artery: No occlusion or significant stenosis. No aneurysm. POSTERIOR CIRCULATION: Right vertebral artery: No occlusion or significant stenosis. No aneurysm. Right PICA visualized Left vertebral artery: No occlusion or significant stenosis. No aneurysm. Left PICA visualized Basilar artery: No occlusion or significant stenosis. No aneurysm. Superior cerebellar artery origins identified. Right posterior cerebral artery: No occlusion or significant stenosis. No aneurysm. Left posterior cerebral artery: No occlusion or significant stenosis. Prominent left PCOM. 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 No aneurysm. No findings to suggest acute dural sinus thrombosis. Brain: Ventricles, sulci are within normal limits. There is no acute hemorrhage, mass or shift. There is no evidence of an acute cortical or major vascular territory infarct. No abnormal extra-axial collections are identified. There is no abnormal intracranial contrast enhancement.. Cerebral ventricles: No significant ventricular enlargement. Bones/joints: Unremarkable. No acute fracture. Soft tissues: Unremarkable. IMPRESSION: No large vessel stenosis or occlusion. No acute findings identified. If further evaluation for the presence of recent, acute or subacute ischemic changes indicated, MR correlation recommended. PROCEDURE INFORMATION: Exam: CTA Neck With Contrast Exam date and time: 02/09/2022 11:53 AM Age: 66 years old Clinical indication: Other: Altered mental status/confusion TECHNIQUE: Imaging protocol: Computed tomographic angiography of the neck with contrast. 3D rendering (Not supervised by radiologist): MIP and/or 3D reconstructed images were created by the technologist. Radiation optimization: All CT scans at this facility use at least one of these dose optimization techniques: automated exposure control; mA and/or kV adjustment per patient size (includes targeted exams where dose is matched to clinical indication); or iterative reconstruction. Contrast material: OMNIPAQUE 350; Contrast volume: 85 ml; Contrast route: INTRAVENOUS (IV); COMPARISON: No relevant prior studies available. FINDINGS: CT angiography of the aortic arch demonstrates a common origin of the brachiocephalic left common carotid artery which are patent. Left subclavian artery origin is patent. Flow is seen distally in both subclavian arteries. Right common carotid artery: No stenosis. No dissection or occlusion. Right internal carotid artery: No stenosis of the extracranial segment. No dissection or occlusion. Right external carotid artery: No occlusion or stenosis of the origin. Left common carotid artery: No stenosis. No dissection or occlusion. Left internal carotid artery: No stenosis of the extracranial segment. No dissection or occlusion. Left external carotid artery: No occlusion or stenosis of the origin. Right vertebral artery: No stenosis. No dissection or occlusion. Left vertebral artery: No stenosis. No dissection or occlusion. Left vertebral artery is dominant. Soft tissues: There is no evidence of a discrete soft tissue mass in the neck. No significant airspace consolidation is identified at the lung apices.. Bones/joints: There is no acute or destructive bony abnormality. There are findings consistent with mild cervical spondylosis, degenerative disc disease. IMPRESSION: No stenosis or occlusion. REFERENCES: NASCET CRITERIA. The degree of stenosis in the cervical segment of the internal carotid artery is based on NASCET criteria. Normal is no stenosis. Mild is less than 50% stenosis. Moderate is 50-69% stenosis. Severe is 70% to 99% stenosis. Total occlusion is no detectable patent lumen. Dictated and Authenticated by: Leisa Mesa MD. Ordering:SMITA Bullard MD
[2022-02-09] MEDS: cefTRIAXone 1 GM/50 ML BAG IVPB (12:45)
--- NOTE | 2022-02-09 16:45 | NUR.NOTE ---
Nursing Note: Referral faxed to PCP for UTI, confusion in 3 to 5 days.
== END 2022-02-09 13:23 | disposition home or self-care (01) ==
PROVIDERS: Emergency Provider Nurse Practitioner Family; PCP Nurse Practitioner Family
DX: N39.0 Urinary tract infection, site not specified (principal); R41.0 Disorientation, unspecified; Z86.16 Personal history of COVID-19
CPT/HCPCS: 36415; 70496; 70498; 80053; 80307; 87077; 93005; 96361; 96365; 99285; 80320; 81003; 81015; 82140; 83735; 85025; 87086; 87186; 93010; J0696; J3490

== ENCOUNTER → 2022-03-26 01:57 | Outpatient (CLI) | payer OTHER, SELFPAY ==
--- NOTE | 2022-03-26 07:30 | DI.MRI_ITS ---
Exam(s) MR BRAIN WO EXAM: MR BRAIN WO CLINICAL HISTORY: ? stroke, transient global amnesia,g45.4 TECHNIQUE: Multiplanar multisequence MRI of the brain was performed. COMPARISON: CT CT BRAIN NECK CTA from 02/09/2022 FINDINGS: VENTRICLES AND EXTRA AXIAL SPACES: Normal in size and morphology for the patient's age. MIDLINE SHIFT: None. CEREBRAL PARENCHYMA: No focus of restricted diffusion to suggest acute infarct. No space-occupying le hope identified. HEMORRHAGE: None. BRAINSTEM/CEREBELLUM: Normal. CALVARIUM: Normal. VISUALIZED PARANASAL SINUSES/MASTOIDS:Clear. [place]: Normal flow void. PITUITARY GLAND: Unremarkable. OTHER FINDINGS: None. IMPRESSION: No evidence of an acute infarct. DATA REPOSITORY:
== END ==
PROVIDERS: PCP Nurse Practitioner Family; Visit Provider Psychiatry & Neurology Neurology
DX: G45.4 Transient global amnesia (principal)
CPT/HCPCS: 70551

== ENCOUNTER 2022-04-01 03:40 | Outpatient (CLI) | payer OTHER, SELFPAY ==
[2022-04-01 09:03] LABS: Calculated LDL 153 mg/dL (<100); Cholesterol 229 mg/dL (<200); HDL Cholesterol 59 mg/dL (40-60); Triglyceride 87 mg/dL (<150)
[2022-04-01 10:31] LABS: Hemoglobin A1C 5.7 % (<5.7)
== END 2022-04-01 03:41 | disposition home or self-care (01) ==
LOC: LBO 03:40
PROVIDERS: PCP Nurse Practitioner Family; Visit Provider Nurse Practitioner Family
DX: E78.5 Hyperlipidemia, unspecified (principal); R73.03 Prediabetes
CPT/HCPCS: 36415; 80061; 83036

== ENCOUNTER 2022-04-03 09:25 | Outpatient (CLI) | payer OTHER, SELFPAY ==
--- NOTE | 2022-04-03 09:15 | DI.RAD_ITS ---
Exam(s) XR ANKLE LT COMPLETE EXAM: XR ANKLE LT COMPLETE CLINICAL HISTORY: left foot into ankle pain,m79.672. TECHNIQUE: 2D digital imaging was performed. COMPARISON: No exams were available for comparison FINDINGS: 3 views There is no evidence of fracture or widening. Talar dome. No degenerative changes in the tibiotalar and subtalar joints. No evidence of osseous tarsal coalition. Small inferior calcaneal spur is not ed. No evidence of osseous tarsal coalition. IMPRESSION: Small inferior calcaneal spur. No other significant osseous findings. DATA REPOSITORY: RADIATION DOSE DELIVERED:
--- NOTE | 2022-04-03 09:15 | DI.RAD_ITS ---
Exam(s) XR FOOT LT COMPLETE EXAM: XR FOOT LT COMPLETE CLINICAL HISTORY: left foot into ankle pain,m79.672. TECHNIQUE: 2D digital imaging was performed. COMPARISON: CR XR ANKLE LT COMPLETE from 04/03/2022 FINDINGS: 3 views No evidence of fracture or diastasis of Lisfranc joint. Bone density normal. No osseous lesions. N o erosions. Small inferior calcaneal spur. No pes planus. Metatarsophalangeal joint of the great t oe appears unremarkable as do the subjacent sesamoid bones at this level. IMPRESSION: No significant osseous findings. DATA REPOSITORY: RADIATION DOSE DELIVERED:
== END 2022-04-03 09:45 ==
LOC: DI 09:26
PROVIDERS: PCP Nurse Practitioner Family; Visit Provider Nurse Practitioner Family
DX: M77.32 Calcaneal spur, left foot (principal); M77.31 Calcaneal spur, right foot
CPT/HCPCS: 73610; 73630

== ENCOUNTER 2023-02-27 01:40 | Outpatient (CLI) | payer OTHER, SELFPAY ==
[2023-02-27 09:19] LABS: Hemoglobin A1C 5.8 % (<5.7)
[2023-02-27 09:44] LABS: Anion Gap 4.8 mmol/L (3-11); BUN 25 mg/dL (7-18); CO2 30.2 mmol/L (21.0-32.0); CREATININE 1.1 mg/dL (0.70-1.30); Chloride 105 mmol/L (98-107); Estimated GFR 73.58 (mL/min/1.73m2); Glucose 92 mg/dL (74-106); Potassium 4.1 mmol/L (3.5-5.1); Sodium 140 mmol/L (136-145)
[2023-02-27 21:26] LABS: PSA, Screening 0.8 ng/mL (<=4.5)
[2023-03-02 11:07] LABS: Hepatitis C Ab w Rflx HCV PCR Negative (Negative)
== END 2023-02-27 01:41 | disposition home or self-care (01) ==
LOC: LBO 01:41
PROVIDERS: PCP Nurse Practitioner Family; Visit Provider Nurse Practitioner Family
DX: Z00.00 Encounter for general adult medical examination without abnormal findings (principal); Z12.5 Encounter for screening for malignant neoplasm of prostate; R73.03 Prediabetes
CPT/HCPCS: 36415; 80048; 84153; 86803; 83036; 84443

== ENCOUNTER 2024-03-04 01:00 | Outpatient (CLI) | payer OTHER, SELFPAY ==
[2024-03-04 07:59] LABS: Hemoglobin A1C 5.9 % (<5.7)
[2024-03-04 08:51] LABS: Anion Gap 7.4 mmol/L (3-11); BUN 27 mg/dL (7-18); CO2 29.6 mmol/L (21.0-32.0); CREATININE 1.1 mg/dL (0.70-1.30); Calcium 9.4 mg/dL (8.5-10.1); Calculated LDL 166 mg/dL (<100); Chloride 105 mmol/L (98-107); Cholesterol 251 mg/dL (<200); Estimated GFR 73.12 (mL/min/1.73m2); Glucose 99 mg/dL (74-106); HDL Cholesterol 73 mg/dL (40-60); Potassium 4.6 mmol/L (3.5-5.1); Sodium 142 mmol/L (136-145); Triglyceride 62 mg/dL (<150)
[2024-03-04 19:23] LABS: HBs Antibody, Quant <3.1 mIU/mL (See Note); Hep B Surface Ab Negative (See Note); Hepatitis B Core Antibody Negative (Negative); Hepatitis B Surface Antigen Negative (Negative)
[2024-03-04 19:26] LABS: HIV-1/2 Ag & Ab Screen Negative (Negative)
== END 2024-03-04 01:01 | disposition home or self-care (01) ==
LOC: LBO 01:00
PROVIDERS: PCP Nurse Practitioner Family; Visit Provider Nurse Practitioner Family
DX: Z11.4 Encounter for screening for human immunodeficiency virus [HIV] (principal); R73.03 Prediabetes; Z11.59 Encounter for screening for other viral diseases; E78.5 Hyperlipidemia, unspecified
CPT/HCPCS: 36415; 80048; 80061; 86704; 86706; 87340; 87389; 83036

== ENCOUNTER 2024-05-13 00:26 | Outpatient (CLI) | payer OTHER, SELFPAY ==
--- NOTE | 2024-05-13 06:30 | DI.MRI_ITS ---
Exam(s) MR ANGIO BRAIN WO EXAM: MR ANGIO BRAIN WO CLINICAL HISTORY: Visual changes,h53.9. TECHNIQUE: Performed on 1.5 boubacar unit using [id number] sequence. CONTRAST MATERIAL: Intravenous: None COMPARISON: MR MR BRAIN WO from 03/26/2022 MR MR BRAIN WO from 05/13/2024 FINDINGS: MRA Brain With: ANTERIOR CIRCULATION: Both internal carotid arteries are patent in the skull base-carotid canals as well as within the cave rnous sinuses. The supraclinoid aspects of both internal carotid arteries are patent. Both A1 segme nts are patent as are the anterior cerebral arteries and there is no evidence of aneurysm at the leve l the anterior communicating artery. Both middle cerebral arteries are patent. No significant stenosis nor filling defects within these v essels and no aneurysms. These vessels are demonstrated to be patent out to the sylvian fissure bran ches. POSTERIOR CIRCULATION: At the skull base both vertebral arteries contribute to the formation of the basilar artery. Basilar Artery: Basilar artery ascends with normal luminal diameter. Distally it gives off patent laird perior cerebellar arteries. Above this level high the basilar artery terminates as a patent right po sterior cerebral artery. On the left side the left posterior cerebral artery is fed by a posterior c ommunicating artery on the left side of the uuyumr-qv-Mcqgma. There is equal flow signal evident in the posterior cerebral arteries in the ambient cisterns (P2 segments). More distally, at the level t he quadrigeminal cistern (P3) the flow signal in the left MACH[employer] PACKAGER is slightly thinner than in the right P CA at this level. There is also a small posterior communicating artery noted on the right side of the lhkuqb-xw-Ldtgsi adding to the flow in the right MACHINE PACKAGER. There is no evidence of aneurysm at the level of the basilar artery tip nor elsewhere in the [place] f-[place]. IMPRESSION: 1. Patent anterior intracranial circulation 2. Some thinning of the flow signal in the left posterior cerebral artery P3 segment is noted when co mpared to the opposite-right side, possibly significant. There is no abnormal signal nor restricted diffusion in the posterior circulation territory evident on today's conventional MRI study. 3. No aneurysms evident. RADIATION DOSE DELIVERED: Total DLP DATA REPOSITORY: All CT scans at this facility are submitted to the National Radiology Data Registry (NRDR) Dose Index Registry (DIR) with the [employer] (ACR). RADIATION OPTIMIZATION: All CT scans at this facility use at least one of these dose optimization te chniques: automated exposure control; mA and/or kV adjustment per patient size (includes targeted exa ms where dose is matched to clinical indication); or iterative reconstruction.
--- NOTE | 2024-05-13 06:30 | DI.MRI_ITS ---
Exam(s) MR BRAIN WO EXAM: MR BRAIN WO CLINICAL HISTORY: Visual changes,h53.9 TECHNIQUE: Multiplanar multisequence MRI of the brain was performed. COMPARISON: MR MR BRAIN WO from 03/26/2022 MR MR ANGIO BRAIN WO from 05/13/2024 FINDINGS: CEREBRAL PARENCHYMA: There is no evidence of intracranial hemorrhage, mass effect, or shift of midline structures. There are no extra-axial fluid collections. Ventricles are not enlarged or shifted. There is no significant focal signal abnormality in the cerebellar hemispheres nor within the nely, m idbrain, and thalami. There is no abnormal signal abnormality in the periventricular white matter. There is no significant focal signal abnormality evident on diffusion imaging to suggest acute ischem ic event. PITUITARY GLAND: No mass nor parasellar abnormality. No obvious abnormality in the cavernous sinuses. FLOW VOIDS: The expected flow void are noted. No evidence of obvious aneurysm nor obvious vascular ma lformation. PARANASAL SINUSES: The visualized paranasal sinuses appear unremarkable. No obvious finding ORBITS: No obvious findings. IMPRESSION: No significant intracranial findings on this noninfused MRI scan of the brain. No significant change compared to the prior MRI scan of 03/26/2022 See separate dictation for brain MRA study DATA REPOSITORY:
== END 2024-05-13 00:46 ==
LOC: DI 00:26
PROVIDERS: PCP Nurse Practitioner Family; Visit Provider Nurse Practitioner Family
DX: H53.9 Unspecified visual disturbance (principal)
CPT/HCPCS: 70544; 70551

== ENCOUNTER 2024-06-27 06:04 | Day surgery (SDC) | payer OTHER, SELFPAY ==
[2024-06-27 06:20] VITALS: BP 135/70; PULSE 63; RESP 16; TEMP 36.3; O2SAT 99
--- NOTE | 2024-06-27 07:14 | W.ANESPRE ---
General Info Date of Service Date Performed: 06/27/24 Height: 5 ft 8 in Weight: 68.1 kg Body Mass Index (BMI): 22.8 Surgical Procedure: Operation Date: 06/27/24 07:35 Proposed Procedure Side Surgeon p Colonoscopy/Gastroscopy Padilla Pat MD Meds Allergies and Home Medications Allergies Allergy/AdvReac Type Severity Reaction Status Date / Time No Known Allergies Allergy Verified 06/27/24 06:48 Home Medication ?Medication ?Instructions ?Recorded loratadine 10 mg tablet 10 mg PO QHS PRN 05/20/24 trazodone 50 mg tablet 25 - 50 mg (0.5 - 1 x 50 mg) PO 05/20/24 QHS PRN insomnia #30 tabs zaleplon 10 mg capsule 10 mg PO QHS PRN 06/13/24 ibuprofen 200 mg capsule 200 mg PO Q6H PRN 06/20/24 mirtazapine 7.5 mg tablet 3.75 mg PO QHS 06/20/24 Current Visit Medications: Current Medications Generic Name Dose Route Start Last Admin Trade Name Donisq PRN Reason Stop Dose Admin Ringer's Solution 1,000 mls @ 80 mls/hr 06/27/24 06:00 IV 06/27/24 23:59 INFUSION KIM IV Miscellaneous Supplies 1 each 06/27/24 06:00 Iv Access IV 06/27/24 23:59 DIRECTED KIM Sodium Chloride 0 ml 06/27/24 06:00 Normal Saline Flush 10 Ml Syr IV 06/27/24 23:59 PRN PRN Sodium Chloride 0 ml 06/27/24 06:00 Normal Saline 10 Ml Vial IJ 06/27/24 23:59 DIRECTED PRN Sterile Water 0 ml 06/27/24 06:00 Water,Injection,Sterile 10 Ml Vial IJ 06/27/24 23:59 DIRECTED PRN PFSH Active Problems Active Problems: Problem Status Onset Code Ocular migraine Acute G43.109 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 Was told if no issue over weekend, continue with prep. Surgical History Surgical History H/O colonoscopy H/O laparoscopy (06/06/19) Laparoscopic release of median arcuate ligament Tobacco Smoking/Tobacco Use Status: Never Passive smoking exposure: No Second hand exposure: Yes Alcohol Alcohol Intake: current Alcohol intake frequency: holidays/special occasions only Alcohol type: wine Substance Use Substance use: Never Substance use type: does not use Vital Signs and Lab Results Vital Signs Most Recent Vital Signs in EMR: Most Recent Vital Signs Temp Pulse Resp BP Pulse Ox 36.3 C L 63 16 135/70 99 06/27/24 06:20 06/27/24 06:20 06/27/24 06:20 06/27/24 06:20 06/27/24 06:20 Lab Results Blood Type / Crossmatch: No Data to Display Complete Blood Count: No Data to Display Complete Metabolic Panel: No Data to Display Liver Function Panel: No Data to Display Coagulation Panel: No Data to Display Cardiac Panel: No Data to Display Arterial Blood Gas: No Data to Display Venous Blood Gas: No Data to Display Pancreas Panel: No Data to Display Thyroid Panel: No Data to Display Infectious Disease: No Data to Display Blood Cultures: No Data to Display Toxicology Panel: No Data to Display Imaging and Studies Imaging and Studies Study information below may be from another EMR and interpreted by another provider. Please see original notes in EMR for more complete details. Stress Test Summary: 02/2018:mpressions: - Normal perfusion by Tc99m Sestamibi Imaging. - Abnormal contraction consistent with cardiomyopathy. - Consider ECHO to better evaluate LVEF. Summary: 1. Myocardial perfusion imaging: No myocardial perfusion defects noted. 2. The calculated left ventricular ejection fraction after stress: 40%. Diffuse left ventricular regional motion abnormalities. 3. Stress: The target heart rate was achieved. Echocardiogram Summary: 02/2020:Conclusion Left Ventricle : The left ventricle is normal size. The left ventricular systolic function is normal. The left ventricular ejection fraction is within the normal range. There is normal left ventricular wall thickness. There is normal LV segmental wall motion. The left ventricular diastolic function is normal. LVEF is 60%. Right Ventricle : The right ventricle is normal size. The right ventricular systolic function is normal. The RVSP is 19.9 mmHg. Atria : The left atrium size is normal. The right atrium size is normal. Mitral Valve : The mitral valve is normal in structure. No evidence of mitral valve stenosis. Mild mitral regurgitation. There is bowing of the anterior mitral valve without prolapse. Great Vessels : The aortic root is normal in size. The ascending aorta is mildly dilated. Aortic arch is normal in caliber. IVC is normal in size and collapses >50% with inspiration. Compared to study from 03/24/2018, there is no significant change. Anesthesia Assessment and Plan Anesthesia History Personal History: No History of Anesthesia Complications Family History: No Family History of Anesthesia Complications Exercise Tolerance Exercise Tolerance: Metabolic Equivalents>4 Pertinent Negatives Pertinent Negatives: No Symptoms of GERD Cardiac & Pulmonary Exam Cardiac Exam: Normal S1/S2 Heart Sounds Pulmonary Exam: Clear Bilateral Breath Sounds Implantable Cardiac Device Does patient have a Pacemaker or an ICD?: No Airway Exam Known Difficult Airway: No Mallampati Class: 1 Mouth Opening: Normal (> 3cm) Thyromental Distance: Greater than 3 cm Neck Range of Motion: Full ROM Neck Circumference: Normal Teeth Condition: Normal Dentition ASA Classification ASA Score: ASA 3 Emergency Case?: No NPO Status NPO Status: NPO Clears >2 hours, Solids >8 hours Anesthesia Plan Resuscitation Status: Full Code Anesthesia Technique: General Anesthesia Airway Planned: Natural Airway Monitors Used: Standard Monitors
[2024-06-27] MEDS: Lactated Ringers 1,000 ML 80 ML IV (07:15)
[2024-06-27 07:28] VITALS: BMI 22.8
--- NOTE | 2024-06-27 07:52 | BOWEL_PTH ---
PATIENT: Mauricio Jones LOC: [facility] U#:[id number] AGE/SX: 68/M ROOM: RE06/27/[address]: Padilla Pta : 1955 BED: DIS: 06/27/2024 SPEC #: [id number] RECD: 06/27/24 12:51 STATUS: SRINIVASAN RE #: [id number] JUAN MANUEL: 06/27/24 07:[address]: Padilla Pat DEPT: Surgical Specimen RECD BY: Leigh Edwards ENTERED: 06/27/24 12:52 SP TYPE: Bowel OTHR DR: NICHOLE Geller Tissues: 1 - BIOPSY BOWEL 2 - STOMACH BIOPSY Procedures: GROSS AND MICRO LEVEL 4 Comments: [id number]
--- NOTE | 2024-06-27 08:10 | COLE_ITS ---
Date of service: 06/27/24 Time of Service: 08:43 Colonoscopy Report Procedure Description: PROCEDURES PERFORMED: 1. Colonoscopy PREOPERATIVE DIAGNOSIS: Surveillance colonoscopy POSTOPERATIVE DIAGNOSIS: Mild pandiverticulosis SURGEON: Nikita Pat MD INDICATION FOR PROCEDURE: the patient is a 68-year-old man with no family history of colon cancer. History of asymptomatic diverticular disease. No symptoms of concern due for usual surveillance. FINDINGS: Minimal/mild, scattered diverticular changes throughout the entire colon. No polyps. No inflammation. No significant hemorrhoidal disease. SURVEILLANCE interval/FOLLOW-UP: 10 years SPECIMENS: None EBL: Minimal COMPLICATIONS: None QUALITY of prep: Excellent Procedure in detail: The patient gave written consent and was in agreement with the indications, the potential risks as well as the benefits of the procedure. He was turned from upper endoscopy (see separate procedure note) and I started the colonoscopy portion of the procedure. Anesthesia was continued. Digital rectal and visual examination was performed and grossly within normal limits. A well-lubricated flexible colonoscope was then introduced and passed without any notable difficulty all the way to the cecum identified by the il eocecal valve and the appendiceal orifice. The scope was then slowly withdrawn with the above-noted findings. The patient tolerated the procedure well and was taken to the PACU in hemodynamically stable condition.
[2024-06-27 08:23] VITALS: BP 110/56; PULSE 52; RESP 16; TEMP 36; O2SAT 100
--- NOTE | 2024-06-27 08:42 | W.PM.DSUDISC ---
Date of service: 06/27/24 Discharge Plan Disposition Patient Disposition: Home Discharge Details Attending Provider: Padilla Pat Primary Care Provider: Kim Haddad Home Meds and New Rx's Prescriptions: No Action ibuprofen 200 mg capsule 200 mg PO Q6H PRN mirtazapine 7.5 mg tablet 3.75 mg PO QHS loratadine 10 mg tablet 10 mg PO QHS PRN trazodone 50 mg tablet 25 - 50 mg PO QHS PRN (Reason: insomnia) Qty: 30 0RF zaleplon 10 mg capsule 10 mg PO QHS PRN Discharge Instructions Additional Instructions: FINDINGS: No findings that would explain your symptoms. Follow-up with your vascular team. No polyps or concerning findings in your colon. You do have diverticulosis disease which is extremely common, benign and nothing needs to be done about it. Repeat a colonoscopy in 10 years Activity:: Activity as Tolerated Diet:: As Tolerated Discharge Orders Discharge Orders: Discharge Order (Routine); Ordered 06/27/24 Ordered By: Padilla Pat
--- NOTE | 2024-06-27 08:43 | W.PM.ENDDOP ---
Date of service: 06/27/24 Time of Service: 08:10 Endoscopy Report PROCEDURE DESCRIPTION: PROCEDURES PERFORMED: 1. 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 He has had return of epigastric pain associated with eating which were similar to his original symptoms. EGD indicated to rule OUT any foregut pathology that might explain the discomfort. FINDINGS: D2/D3 = grossly normal D1/bulb = perhaps mildly/minimally inflamed -cold forceps biopsies taken to assess - no ulcers Pylorus = normal Antrum = mildly inflamed/injected appearance, no ulcers, cold forceps biopsies were taken to rule out H. pylori routinely Body = normal appearance, biopsies taken with cold forceps technique routinely Fundus = normal, no polyps Cardia = normal Hiatus = no hiatal hernia Distal esophagus = no inflammation, no esophagitis, no Henao's, no stricture. Mid esophagus = normal Proximal esophagus/hypopharynx/vocal cords = normal SURVEILLANCE-INTERVAL/FOLLOW-UP: Follow-up with PCP and/your vascular doctors Specimens: Yes EBL: Minimal COMPLICATIONS: None Procedure in detail: The patient gave written consent and was in agreement with the indications, the potential risks as well as the benefits of the procedure. The patient was taken to the endoscopy suite and laid on their left side. Anesthesia was given which was tolerated well. We performed a timeout and we are in agreement I started the procedure. A well-lubricated endoscope was gently and carefully advanced down the esophagus, into the stomach the scope was and through the pylorus into the duodenum. The scope was then slowly withdrawn with the above-noted findings/interventions. The patient tolerated the procedure well and was then turned for colonoscopy (see separate procedure note).
[2024-06-27 08:48] VITALS: BP 114/71; PULSE 50; RESP 16; TEMP 36.4; O2SAT 98
--- NOTE | 2024-06-27 09:14 | W.ANESPOSTOP ---
Postoperative Evaluation Date, Time and Location Date Performed: 06/27/24 Time Performed: 09:20 Patient Location: Day Surgery Unit Vital Signs Most Recent Imported Vital Signs: Most Recent Vital Signs Temp Pulse Resp BP Pulse Ox 36.4 C L 50 L 16 114/71 98 06/27/24 08:48 06/27/24 08:48 06/27/24 08:48 06/27/24 08:48 06/27/24 08:48 Pain Score Most Recent Pain Score: Most Recent Pain Score Pain Level 0 06/27/24 08:48 Assessment Mental Status: Awake (Alert & Oriented to Patient Baseline) Airway and Respiratory Function: Patent airway with normal (patient baseline) respiratory exam Cardiovascular Function: Hemodynamically Stable Hydration Status: Adequately Hydrated Nausea & Vomiting: No Nausea or Vomiting Pain: Pt. Denies Any Pain Peripheral Nerve Block: Patient did not receive a nerve block
== END 2024-06-27 09:10 | disposition home or self-care (01) ==
PROVIDERS: PCP Nurse Practitioner Family; Visit Provider Student in an Organized Health Care Education/Training Program
PROC: (CPT 43239; principal; 2024-06-27 07:30)
DX: R10.13 Epigastric pain (principal); Z12.11 Encounter for screening for malignant neoplasm of colon; K57.30 Diverticulosis of large intestine without perforation or abscess without bleeding; K31.9 Disease of stomach and duodenum, unspecified
CPT/HCPCS: 43239; 45378; 88305; J2003; J2704

== ENCOUNTER 2024-09-16 14:10 | Outpatient (CLI) | payer OTHER, SELFPAY ==
--- NOTE | 2024-09-16 14:00 | RT.EKG_ITS ---
APPROVED REPORT Exam: Resting ECG Reason for Exam: Back pain Patient Location: O HR:79 bpm ECG Measurements Heart Rate 79 AXIS MN 146 P 49 QRSd 108 QRS 67 QT 381 T 55 QTc 437 Conclusion Sinus rhythm...normal P axis, V-rate 50- 99 Borderline low voltage, extremity leads...all extremity leads <0.6mV Otherwise normal ECG
== END 2024-09-16 14:11 | disposition home or self-care (01) ==
LOC: DI.CM 14:11
PROVIDERS: PCP Nurse Practitioner Family; Visit Provider Nurse Practitioner Family
DX: M54.2 Cervicalgia (principal); M54.9 Dorsalgia, unspecified; R07.9 Chest pain, unspecified
CPT/HCPCS: 93010

== ENCOUNTER 2024-09-16 14:53 | Emergency (ER) | payer OTHER, SELFPAY ==
--- NOTE | 2024-09-16 14:45 | RT.EKG_ITS ---
APPROVED REPORT Exam: Resting ECG Reason for Exam: Chest pain Patient Location: E HR:90 bpm ECG Measurements Heart Rate 90 AXIS MS 149 P 57 QRSd 97 QRS 58 QT 361 T 66 QTc 442 Conclusion Sinus rhythm, rate 90 No interval abnormalities No STEMI No significant changes from prior
[2024-09-16 14:55] VITALS: BP 115/63; PULSE 88; RESP 18; TEMP 36.7; O2SAT 97
--- NOTE | 2024-09-16 15:15 | DI.CT_ITS ---
Exam(s) CT ABDOMEN PELVIS W EXAM: CT ABDOMEN PELVIS W CLINICAL HISTORY: abd/flank pain, constipation TECHNIQUE: Imaging Protocol: Axial computed tomography images with coronal and sagittal reformatted images were created and reviewed. CONTRAST MATERIAL: Intravenous: Omnipaque 350 Contrast volume:75 mL Oral: No COMPARISON: CT CT ABDOMEN PELVIS CTA from 03/04/[address] ABDOMEN PELVIS CTA from 11/15/[address] BRAIN NECK CTA from 02/09/2022 FINDINGS: ABDOMEN: Lung Bases: No acute abnormality. Liver: Normal density. No measurable mass. Portal, Superior Mesenteric, and Splenic Veins: Unremarkable. Gallbladder and Biliary Tract: No radiodense calculus or dilation. Pancreas: Normal density, no abnormal calcifications or inflammatory process. Spleen: Normal. Adrenals: No masses seen. Kidneys: Normal size, contour and axis. No radiodense stones or obstructive uropathy. Bilateral parapelvic cysts are again seen. No follow-up is recommended. Abdominal Aorta: Abdominal portion non-dilated. Atherosclerotic calcification is present. Bowel: There is diverticulosis of the colon without evidence of acute diverticulitis. There is no evidence of bowel obstruction or bowel wall thickening. Appendix is unremarkable. Peritoneal Cavity: No ascites, collection or mesenteric inflammatory response. No free air. Lymph Nodes: Within normal limits. Bones: Within normal limits for the patient's age. Soft Tissues: There is a small fat containing umbilical hernia. PELVIS: Bladder: Symmetric distention, no gross wall thickening. There are urinary bladder diverticula again seen. Reproductive Organs: Unremarkable as visualized. Lymph Nodes: Within normal limits. Bones: Within normal limits for the patient's age. IMPRESSION: 1. No acute abdominal or pelvic process. 2. No evidence of nephrolithiasis or hydronephrosis. 3. No evidence of cholelithiasis or biliary ductal dilatation. 4. Colonic diverticulosis without evidence of acute diverticulitis. 5. Normal appendix. RADIATION DOSE DELIVERED: 301.93mGy.cm Total DLP DATA REPOSITORY: All CT scans at this facility are submitted to the National Radiology Data Registry (NRDR) Dose Index Registry (DIR) with the [employer] (ACR). RADIATION OPTIMIZATION: All CT scans at this facility use at least one of these dose optimization techniques: automated exposure control; mA and/or kV adjustment per patient size (includes targeted exams where dose is matched to clinical indication); or iterative reconstruction.
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
[2024-09-16 16:22] LABS: Abs Immature Grans 0.11 10^3/uL (0.0-0.06); Absolute Basophil Count 0.06 10^3/uL (0.0-0.2); Absolute Monocyte Count 0.57 10^3/uL (0.1-0.8); Absolute Neutrophil Count 14.37 10^3/uL (1.2-6.7); Basophils % 0.4 %; Eosinophils % 0.1 %; HCT 43.6 % (40.0-50.0); HGB 14.4 g/dL (13.5-17.5); Immature Grans % 0.7 %; Lymphocytes % 1.4 %; MCH 29.5 pg (27.0-33.0); MCV 89 fL (80-95); MPV 9.5 fL (8.0-11.0); Monocytes % 3.7 %; Neutrophils % 93.7 %; Platelet Count 238 10^3/uL (130-400); RBC 4.88 10^6/uL (4.36-5.78); RDW 12.6 % (11.8-14.1); RDW-SD 41.5 fL; WBC 15.34 10^3/uL (4.4-10.8)
[2024-09-16 16:23] LABS: Absolute Eosinophil Count 0.02 10^3/uL (0.0-0.7); Absolute Lymphocyte Count 0.21 10^3/uL (1.2-3.4)
[2024-09-16] MEDS: Normal Saline Flush 10 ML SYR IVP (16:32)
[2024-09-16] MEDS: ACETAMINOPHEN 1,000 MG/100 ML BAG 400 MG IVPB (16:32)
[2024-09-16] MEDS: Ondansetron 4 MG/2 ML VIAL IVP (16:33)
[2024-09-16 16:40] LABS: ALT 25 U/L (16-63); AST 18 U/L (15-37); Albumin 4.3 g/dL (3.4-5.0); Alkaline Phosphatase 56 U/L (46-116); Anion Gap 9.3 mmol/L (3-11); BUN 20 mg/dL (7-18); CO2 29.7 mmol/L (21.0-32.0); CREATININE 1.1 mg/dL (0.70-1.30); Calcium 9.1 mg/dL (8.5-10.1); Chloride 102 mmol/L (98-107); Estimated GFR 72.67 (mL/min/1.73m2); Glucose 104 mg/dL (74-106); Lipase 23 U/L (<78); Potassium 3.4 mmol/L (3.5-5.1); Sodium 141 mmol/L (136-145); Total Protein 7.8 g/dL (6.4-8.2); Troponin I 6 ng/L (<or=76)
[2024-09-16] MEDS: Normal Saline - Diluent 50 ML VIAL IJ (17:05)
[2024-09-16] MEDS: Omnipaque 350 MG/ML 100 ML BTL 70 ML IJ (17:07)
--- NOTE | 2024-09-16 17:13 | DI.RAD_ITS ---
Exam(s) XR CHEST 2V PA LATERAL EXAM: XR CHEST 2V PA LATERAL CLINICAL HISTORY: Chest pain TECHNIQUE: 2D digital imaging was performed of the chest. Two images were obtained. PA and lateral views were obtained. COMPARISON: No exams were available for comparison FINDINGS: MEDIASTINUM: Normal. HEART: Normal. PULMONARY VASCULATURE: Normal. LUNGS: No focal consolidating infiltrates are present. PLEURAL SPACE: No pleural effusion or pneumothorax. BONE:Within normal limits for the patient's age. OTHER FINDINGS:Normal. IMPRESSION: No acute pulmonary findings. DATA REPOSITORY: RADIATION DOSE DELIVERED:
[2024-09-16 17:54] VITALS: RESP 16
[2024-09-16 18:13] LABS: Troponin I 6 ng/L (<or=76)
[2024-09-16] MEDS: Ondansetron O.D.T. 4 MG TABEF, 3 TABS/BTL PO (18:39)
[2024-09-16 18:50] VITALS: BP 102/36; PULSE 78; RESP 16; O2SAT 96
== END 2024-09-16 19:06 | disposition home or self-care (01) ==
PROVIDERS: Emergency Provider Emergency Medicine; PCP Nurse Practitioner Family
DX: R07.9 Chest pain, unspecified (principal); R11.0 Nausea; E78.5 Hyperlipidemia, unspecified
CPT/HCPCS: 36415; 80053; 83690; 93005; 96365; 96375; 99285; 71046; 74177; 83735; 84484; 85025; 93010; J0131; J2405; J3490

== ENCOUNTER 2024-09-16 15:15 | Outpatient (REF) | payer OTHER, SELFPAY | END 2024-09-16 15:16 | disposition home or self-care (01) | LOC: LBN 15:15 | PROVIDERS: PCP Nurse Practitioner Family; Visit Provider Nurse Practitioner Family | DX: N39.0 Urinary tract infection, site not specified (principal) | CPT/HCPCS: 87077; 87086; 87186 ==

== ENCOUNTER 2024-10-28 19:28 | Outpatient (REF) | payer OTHER, SELFPAY ==
[2024-10-28 11:48] LABS: Glucose Negative (Negative)
[2024-10-28 11:58] LABS: RBC Negative HPF (0-2); WBC 20-50 HPF (0-5)
[2024-10-28 11:59] LABS: C & S Indicated? Yes
== END 2024-10-28 19:29 | disposition home or self-care (01) ==
LOC: LBN 19:28
PROVIDERS: PCP Nurse Practitioner Family; Visit Provider Family Medicine
DX: R10.9 Unspecified abdominal pain (principal)
CPT/HCPCS: 87077; 87186; 81003; 81015; 87086

== ENCOUNTER 2024-11-17 07:29 | Outpatient (REF) | payer OTHER, SELFPAY ==
[2024-11-17 13:57] LABS: Glucose Negative (Negative)
== END 2024-11-17 07:30 | disposition home or self-care (01) ==
LOC: LBN 07:29
PROVIDERS: PCP Nurse Practitioner Family; Visit Provider Nurse Practitioner Family
DX: N39.0 Urinary tract infection, site not specified (principal); R82.89 Other abnormal findings on cytological and histological examination of urine
CPT/HCPCS: 81003

== ENCOUNTER 2024-12-05 07:38 | Outpatient (REF) | payer OTHER, SELFPAY | END 2024-12-05 07:39 | disposition home or self-care (01) | LOC: LBN 07:38 | PROVIDERS: PCP Nurse Practitioner Family; Visit Provider Nurse Practitioner Gerontology | DX: N40.1 Benign prostatic hyperplasia with lower urinary tract symptoms (principal); N13.8 Other obstructive and reflux uropathy; N39.0 Urinary tract infection, site not specified | CPT/HCPCS: 87077; 87086; 87186 ==

== ENCOUNTER 2025-02-28 00:57 | Outpatient (CLI) | payer OTHER, SELFPAY ==
[2025-02-28 07:39] LABS: HCT 43.4 % (40.0-50.0); HGB 13.9 g/dL (13.5-17.5); MCH 28.5 pg (27.0-33.0); MCHC 32.0 % (32.0-36.0); MCV 89 fL (80-95); MPV 9.6 fL (8.0-11.0); Platelet Count 257 10^3/uL (130-400); RBC 4.87 10^6/uL (4.36-5.78); RDW 12.6 % (11.8-14.1); RDW-SD 41.2 fL; WBC 4.23 10^3/uL (4.4-10.8)
[2025-02-28 07:53] LABS: Hemoglobin A1C 5.7 % (<5.7)
[2025-02-28 08:48] LABS: Anion Gap 4.9 mmol/L (3-11); BUN 27 mg/dL (9-23); CO2 31.1 mmol/L (20.0-31.0); Calcium 9.1 mg/dL (8.3-10.6); Chloride 107 mmol/L (98-107); Cholesterol 231 mg/dL (<200); Glucose 87 mg/dL (74-106); HDL Cholesterol 72 mg/dL (>40); Potassium 4.7 mmol/L (3.5-5.1); Sodium 143 mmol/L (136-145)
[2025-02-28 21:46] LABS: PSA, Screening 0.8 ng/mL (<=4.5)
== END 2025-02-28 00:58 | disposition home or self-care (01) ==
LOC: LBO 00:58
PROVIDERS: PCP Nurse Practitioner Family; Visit Provider Nurse Practitioner Gerontology
DX: R73.03 Prediabetes (principal); E78.5 Hyperlipidemia, unspecified; R39.9 Unspecified symptoms and signs involving the genitourinary system
CPT/HCPCS: 36415; 80048; 80061; 84153; 85027; 83036

== ENCOUNTER 2025-03-07 15:45 | Outpatient (REF) | payer OTHER, SELFPAY | END 2025-03-07 15:46 | disposition home or self-care (01) | LOC: LBN 15:45 | PROVIDERS: PCP Nurse Practitioner Family; Visit Provider Nurse Practitioner Gerontology | DX: N40.1 Benign prostatic hyperplasia with lower urinary tract symptoms (principal); N13.8 Other obstructive and reflux uropathy; N32.3 Diverticulum of bladder; N39.0 Urinary tract infection, site not specified | CPT/HCPCS: 87077; 87086; 87186 ==

== ENCOUNTER → 2025-03-21 00:48 | Outpatient (CLI) | payer OTHER, SELFPAY ==
--- NOTE | 2025-03-21 06:00 | DI.US_ITS ---
APPROVED REPORT EXAM: Comprehensive 2D, Doppler, and color-flow Echocardiogram Patient Location: Out-Patient Brush Finisher: Bernadine Forman RDCS (AE) Indications: Mitral Valve regurgitation Other Information Study Quality: Adequate Conclusion Normal left ventricular wall thickness and chamber size. Ejection fraction is 55 to 60%. Wall motion is normal Normal right ventricular size and function Both atria are normal in size There are no structural valvular abnormalities Mild mitral and tricuspid and aortic regurgitation Estimated right ventricular systolic pressure is 22 mmHg Ascending aorta measures 3.64 cm Wall motion Left Ventricle The left ventricle is normal size. The left ventricular systolic function is normal. The left ventricular ejection fraction is within the normal range. There is normal left ventricular wall thickness. There is normal LV segmental wall motion. There is no ventricular septal defect visualized. LVEF is 55-60%. Right Ventricle The right ventricle is normal size. The right ventricular systolic function is normal. Atria The left atrium size is normal. The right atrium size is normal. The interatrial septum is intact with no evidence for an atrial septal defect. Aortic Valve The aortic valve is normal in structure. Aortic valve is trileaflet. There is no aortic valvular stenosis. Mild aortic regurgitation. Mitral Valve The mitral valve is normal in structure. No evidence of mitral valve stenosis. Mild mitral regurgitation. Tricuspid Valve The tricuspid valve is normal in structure. There is no tricuspid valve stenosis. Mild tricuspid regurgitation. The RVSP is 22.3_ mmHg. Pulmonic Valve The pulmonary valve is normal in structure. There is no pulmonic valvular stenosis. Mild pulmonic regurgitation. Great Vessels The aortic root is normal in size. The ascending aorta is mildly dilated. Aortic arch is not well visualized. IVC is normal in size and collapses >50% with inspiration. Pericardium There is no pericardial effusion. 2D Dimensions IVSD d PLAX 0.90 cm M: 0.6-1.2 Ao Root d 3.12 cm M: 3.1 - 3.7 LVPW d PLAX 0.93 cm M: 0.6 - 1.2 Ao Asc Diam d 3.64 cm M: 2.6 - 3.4 LVID d PLAX 4.84 cm M: 4.2 - 5.8 LVDs 3.30 cm M: 2.5 - 4.0 LV EF Teichholz 60.2 % FS 32.15 % LV EDV (Teich) 109.4 mL LV ESV (Teich) 43.5 mL M-Mode TAPSE 2.44 cm (M/F) >1.7 Auto EF LV EDV A4C 132.6 mL LV EDV A2C 135.8 mL LV EDV BP 131.1 mL LV ESV A4C 59.1 mL LV ESV A2C 60.8 mL LV ESV BP 60.0 mL LVEF(%) A4C 55.4 % LVEF(%) A2C 55.2 % LVEF(%) BP 54.3 % LV SV A4C 73.5 ml LV SV A2C 75.0 ml LV SV BP 71.1 ml LV CO A4C 3.7 L/min LV CO A2C 3.7 L/min LV CO BP 3.7 L/min HR A4C 50.85 BPM HR A2C 49.10 BPM LV EDV Index (BP) LA Volume LA Length A4C 4.4 cm LA Length A2C 5.0 cm LA Area A4C s 16.05 cm2 LA Area A2C s 20.40 cm2 LA Vol A4C A-L 49.69 mL LA Vol A2C A-L 71.32 mL LA Vol Biplane A-L 63.1 mL LA Vol/BSA A4C A-L LA Vol/BSA A2C A-L LA Vol/BSA BP A-L 34.7 mL/m2 LA Vol A4C MOD 45.6 mL LA Vol A2C MOD 64.1 mL LA Vol BP MOD 56.8 mL RA Volume RA Area A4C 12.3 cm2 RA ESV A4C (A-L) 33.4mL RA Vol/BSA A4C A-L RA Length A4C 3.9 cm RA ESV A4C (MOD) 28.7mL LV Diastology MV E' medial 0.087 (>0.07 m/s) MV E Vmax 0.50 (0.4-1.3 m/s) MV E/E' MED 5.76 (<14) MV A Vmax 0.50 (0.4-1.3 m/s) MV E' lateral 0.077 (>0.1 m/s) E/A Ratio 1.0 MV E/E' LAT 6.56 (<14) MV E' Average 0.082 m/s MV E/E'(average) 6.13 Aortic Valve AoV Vmax 1.03 m/s LVOT Vmax 0.89 m/s AoV Peak Grad 16.6 mmHg LVOT Peak Grad 3.2 mmHg AoV Area (Vmax) 2.50 cm2 LVOT VTI 0.204 m AoV VTI 0.254 m LVOT Mean Grad 1.7 mmHg AoV Mean Aneesh. 0.72 m/s LVOT SV 59.03 mL AoV Mean Grad 2.3 mmHg LVOT Diam s 1.90 cm AoV Area (VTI) 2.32 cm2 AV Regurg Peak Gr. 4.27 mmHg Velocity Ratio 0.86 AR Decel Cherry 1.2m/sec2 AR DT 2217 msec AR PHT 643 msec AR Vmax 2.68 m/s Mitral Valve MV DT 210 (160-240 msec) MV Vmax TIPS 0.59 m/s MV Mean Grad 0.4 (<2mmHg) MV VTI 0.208 m Pulmonary Valve PV Vmax 0.98 (0.5-1.5 m/s) RVOT Vmax 0.62 m/s PV Peak Grad 3.9 mmHg RVOT Peak Gr. 1.5 mmHg PV Mean Aneesh 0.65 m/s RVOT VTI 0.167 m PV Mean Grad 2.0 mmHg RVOT Mean Gr. 0.9 mmHg Tricuspid Valve RA Pressure 3.00 mmHg TR Vmax 2.20 m/s TV S' 0.13 m/s TR Peak Grad 19.3 mmHg RVSP (TR) 22.3 mmHg
== END ==
LOC: DI 00:48
PROVIDERS: PCP Nurse Practitioner Family; Visit Provider Nurse Practitioner Family
DX: I08.3 Combined rheumatic disorders of mitral, aortic and tricuspid valves (principal)
CPT/HCPCS: 93306